=== PATIENT | female | born 1955 | race American Indian/Alaskan Native ===

== ENCOUNTER 2017-10-23 14:51 | Inpatient (IN) | payer BC ==
--- NOTE | 2017-10-23 15:41 | C.PDOC ---
History Of Present Illness 62yo female, history of hypertension, brought to ER by family as they noted patient has slurred speech, confusion, and is "not making sense with words" x 2- 3 days. Patient's family states the symptoms were intermittent and now have worsened, prompting the ER visit. They states the patient is not at her baseline as well. She currently denies any fever, chills, chest pain and offers no other complaints. Full HPI and ROS limited due to the clinical condition. Time Seen by Provider: 10/23/17 15:05 Chief Complaint (Nursing): Medical Clearance History Per: Family History/Exam Limitations: clinical condition Past Medical History Reviewed: Historical Data, Nursing Documentation, Vital Signs Vital Signs: Last Vital Signs Temp 98.6 F 10/23/17 22:40 Pulse 158 H 10/23/17 22:40 Resp 18 10/23/17 22:40 BP 157/92 H 10/23/17 22:45 Pulse Ox 97 10/23/17 22:40 - Medical History PMH: HTN Surgical History: No Surg Hx Family History: States: No Known Family Hx - Social History Hx Alcohol Use: No Hx Substance Use: No Review Of Systems Except As Marked, All Systems Reviewed And Found Negative. Constitutional: Negative for: Fever, Chills Cardiovascular: Negative for: Chest Pain Respiratory: Negative for: Shortness of Breath Neurological: Positive for: Altered Mental Status Physical Exam - Physical Exam Appears: Non-toxic, No Acute Distress Skin: Normal Color, Warm, Dry Head: Atraumatic, Normacephalic Eye(s): bilateral: Normal Inspection Neck: Normal ROM, Supple Chest: Symmetrical, No Tenderness Cardiovascular: Rhythm Regular Respiratory: Normal Breath Sounds Gastrointestinal/Abdominal: Normal Exam, Soft, No Tenderness Back: Normal Inspection Extremity: Normal ROM, No Pedal Edema Neurological/Psych: Normal Speech, Normal Cognition, Normal Motor, Normal Sensation Disoriented To: Place, Time, Situation Gait: Steady ED Course And Treatment - Laboratory Results Result Diagrams: 10/23/17 15:47 10/23/17 15:47 ECG: Interpreted By Me, Viewed By Me ECG Interpretation: Normal Interpretation Of ECG: Normal interval, norml axis, nonspecific t-wave changes Rate From EC O2 Sat by Pulse Oximetry: 97 (RA) Pulse Ox Interpretation: Normal Medical Decision Making Medical Decision Making: Assessment: Confusion Plan: -- Labs -- CXR -- CT Head w/o contrast 1600 CT Head FINDINGS: HEMORRHAGE: No intracranial hemorrhage. BRAIN: There are multiple foci of encephalomalacia in the bilateral basal ganglia suggestive of chronic lacunar infarctions. Atrophy and extensive white matter changes are noted suggestive of chronic microvascular ischemic disease. VENTRICLES: Unremarkable. No hydrocephalus. CALVARIUM: Unremarkable. PARANASAL SINUSES: Unremarkable as visualized. No significant inflammatory changes. MASTOID AIR CELLS: Unremarkable as visualized. No inflammatory changes. OTHER FINDINGS: None. IMPRESSION: No evidence of acute intracranial hemorrhage mass effect or midline shift. Bilateral chronic lacunar infarction at the basal ganglia. Atrophy and extensive white matter changes suggestive of chronic microvascular ischemic disease. [address] Recinos, patient to be admitted under her service for hypertension and confusion. patient bp noted to be elevated and treated with labetalol and clonididine and admitted to medical surgical floor. Disposition Discussed With Dr.: Taylor Recinos Doctor Will See Patient In The: Hospital Counseled Patient/Family Regarding: Studies Performed, Diagnosis - Disposition Disposition: HOSPITALIZED Disposition Time: 19:44 Condition: FAIR - Clinical Impression Clinical Impression: Hypertension, Confusion - Scribe Statement The provider has reviewed the documentation as recorded by the Winsome Maitas Provider Attestation: All medical record entries made by the Winsome were at my direction and personally dictated by me. I have reviewed the chart and agree that the record accurately reflects my personal performance of the history, physical exam, medical decision making, and the department course for this patient. I have also personally directed, reviewed, and agree with the discharge instructions and disposition.
[2017-10-23 15:51] LABS: BASO # 0.1 K/uL (0.0-0.2); BASO % 0.6 % (0.0-2.0); EOS # 0.2 K/uL (0.0-0.7); EOS % 2.8 % (0.0-4.0); HEMOGLOBIN 12.7 g/dL (11.0-16.0); LYMPH # 2.7 K/uL (1.0-4.3); LYMPH % 32.2 % (20.0-40.0); MEAN CELL VOLUME 79.6 fL (81.0-99.0); MEAN CORPUSCULAR HEMOGLOBIN 26.2 pg (27.0-31.0); MEAN CORPUSCULAR HGB CONC 32.9 g/dL (33.0-37.0); MEAN PLATELET VOLUME 7.7 fL (7.2-11.7); MONO # 0.8 K/uL (0.0-0.8); MONO % 9.2 % (0.0-10.0); NEUT # 4.7 K/uL (1.8-7.0); NEUT % 55.2 % (50.0-75.0); NRBC % 0.1 % (0.0-2.0); RBC 4.86 Mil/uL (3.80-5.20); RED CELL DISTRIBUTION WIDTH 15.8 % (11.5-14.5); WHITE BLOOD COUNT 8.5 K/uL (4.8-10.8)
[2017-10-23 16:08] LABS: ALB/GLOB RATIO 1.2 (1.0-2.1); ALBUMIN 4.3 g/dL (3.5-5.0); ALT/SGPT 21 U/L (9-52); AST/SGOT 19 U/L (14-36); BLOOD UREA NITROGEN 13 mg/dL (7-17); CALCIUM 9.8 mg/dl (8.6-10.4); GFR AFRICAN-AMERICAN 55; GFR NON-AFRICAN AMERICAN 45
--- NOTE | 2017-10-23 16:08 | CT ---
Date of service: 10/23/2017 PROCEDURE: CT HEAD WITHOUT CONTRAST. HISTORY: dizziness COMPARISON: None available. TECHNIQUE: Axial computed tomography images were obtained through the head/brain without intravenous contrast. Radiation dose: Total exam DLP = 836.46 mGy-cm. This CT exam was performed using one or more of the following dose reduction techniques: Automated exposure control, adjustment of the mA and/or kV according to patient size, and/or use of iterative reconstruction technique. FINDINGS: HEMORRHAGE: No intracranial hemorrhage. BRAIN: There are multiple foci of encephalomalacia in the bilateral basal ganglia suggestive of chronic lacunar infarctions. Atrophy and extensive white matter changes are noted suggestive of chronic microvascular ischemic disease. VENTRICLES: Unremarkable. No hydrocephalus. CALVARIUM: Unremarkable. PARANASAL SINUSES: Unremarkable as visualized. No significant inflammatory changes. MASTOID AIR CELLS: Unremarkable as visualized. No inflammatory changes. OTHER FINDINGS: None. IMPRESSION: No evidence of acute intracranial hemorrhage mass effect or midline shift. Bilateral chronic lacunar infarction at the basal ganglia. Atrophy and extensive white matter changes suggestive of chronic microvascular ischemic disease.
[2017-10-23 16:19] LABS: B-TYPE NATRIURETIC PEPTIDE 40.6 pg/mL (0-900)
[2017-10-23] MEDS ORDERED: Labetalol 25mg/5ml Syringe IVP STA ×2 (16:19→19:42)
--- NOTE | 2017-10-23 16:22 | RAD ---
Date of service: 10/23/2017 PROCEDURE: CHEST RADIOGRAPH, 1 VIEW HISTORY: SOB COMPARISON: None available. FINDINGS: LUNGS: Clear. PLEURA: No pneumothorax or pleural fluid seen. CARDIOVASCULAR: Normal. OSSEOUS STRUCTURES: No significant abnormalities. VISUALIZED UPPER ABDOMEN: Normal. OTHER FINDINGS: None. IMPRESSION: No active disease.
[2017-10-23] MEDS ORDERED: Labetalol 25mg/5ml Syringe ONE (16:50)
[2017-10-23 19:23] LABS: BARBITURATES, UR NEGATIVE (NEGATIVE); BENZODIAZEPINES, UR NEGATIVE (NEGATIVE); OPIATES, UR NEGATIVE (NEGATIVE); PHENCYCLIDINE, UR NEGATIVE (NEGATIVE)
[2017-10-23 20:25] LABS: SQUAMOUS EPITHIAL 8 /hpf (0-5); URINE BACTERIA FEW (<OCC); URINE BILIRUBIN NEGATIVE (NEGATIVE); URINE BLOOD NEGATIVE (NEGATIVE); URINE CLARITY Hazy (Clear); URINE COLOR Yellow (YELLOW); URINE GLUCOSE (UA) NORMAL (Normal); URINE LEUKOCYTE ESTERASE 3+ Leu/uL (Negative); URINE PROTEIN 2+ mg/dL (NEGATIVE); URINE UROBILINOGEN NORMAL mg/dL (0.2-1.0)
[2017-10-24 07:41] LABS: IRON 59 ug/dL (37-170)
[2017-10-24 07:51] LABS: % IRON SATURATION 18 (20-55); TOTAL IRON BINDING CAPACITY 326 ug/dL (250-450)
[2017-10-24] MEDS: Metoprolol Succinate 50 mg XL Tab PO SCH (09:16)
[2017-10-24 09:32] LABS: FOLATE 12.1 ng/mL
[2017-10-24] MEDS ORDERED: Labetalol 25mg/5ml Syringe IVP STA (11:53)
--- NOTE | 2017-10-24 14:50 | MRI ---
Date of service: 10/24/2017 PROCEDURE: MRI BRAIN WITHOUT CONTRAST HISTORY: AMS COMPARISON: Noncontrast head CT from 10/23/2017. TECHNIQUE: Multiplanar, multisequence MR images of the brain were obtained without intravenous contrast enhancement. FINDINGS: HEMORRHAGE: None DWI: There is a triangular area of restricted diffusion in the left parieto-occipital lobe. BRAIN PARENCHYMA: There is T2/FLAIR hyperintensity in the left parieto-occipital lobe corresponding to the area of restricted diffusion There is an old lacunar infarction in the left basal ganglia. There are perivascular spaces in bilateral basal ganglia. There are severe chronic microangiopathic changes. There is no mass, mass effect or abnormal extra-axial fluid collection. There is no territorial infarction. There is a partially empty sella, otherwise the midline sagittal structures are normal. VENTRICLES: There is moderate age-related global parenchymal volume loss and proportionate enlargement of the ventricles and cortical sulci. CRANIUM: There is normal bone marrow signal pattern. ORBITS: Grossly unremarkable. PARANASAL SINUSES/MASTOIDS: Predominantly clear. VASCULAR SYSTEM: There are normal signal voids in the larger intracranial arteries. OTHER FINDINGS: None. IMPRESSION: 1. Acute left MCA [employer]ISTANT watershed territory infarction involving the parietal occipital lobe. 2. Severe chronic microangiopathic changes and moderate age-related global parenchymal volume loss. 3. Old lacunar infarction in the left basal ganglia. Important findings were discussed with Dr. James Summers on 10/24/2017 at 2:40 p.m.
--- NOTE | 2017-10-24 17:55 | CP.PCM.CON ---
History of Present Illness - History of Present Illness History of Present Illness: 62yo female, history of hypertension, brought to ER by family as they noted patient has slurred speech, confusion, and is "not making sense with words" x 2- 3 days. Patient's family states the symptoms were intermittent and now have worsened, prompting the ER visit. They states the patient is not at her baseline as well. She currently denies any fever, chills, chest pain and offers no other complaints. At th etime of examination sitting in chair with daughter and have slurred speech. No focal weakness. Review of Systems - Constitutional Constitutional: As Per HPI - EENT Eyes: As Per HPI Ears: As Per HPI - Breasts Breasts: As Per HPI - Cardiovascular Cardiovascular: As Per HPI - Respiratory Respiratory: As Per HPI - Gastrointestinal Gastrointestinal: As Per HPI - Genitourinary Genitourinary: As Per HPI - Reproductive: Female Reproductive:Female: As Per HPI, Cycle Variable - Neurological Neurological: As Per HPI Past Patient History - Past Medical History & Family History Past Medical History?: Yes - Past Social History Smoking Status: Former Smoker - CARDIAC Hx Cardiac Disorders: Yes Hx Hypertension: Yes - PULMONARY Hx Respiratory Disorders: No - NEUROLOGICAL Hx Neurological Disorder: No - HEENT Hx HEENT Problems: No - RENAL Hx Chronic Kidney Disease: No - HEMATOLOGICAL/ONCOLOGICAL Hx Blood Disorders: No - INTEGUMENTARY Hx Dermatological Problems: No - MUSCULOSKELETAL/RHEUMATOLOGICAL Hx Falls: No - GASTROINTESTINAL Hx Gastrointestinal Disorders: No - GENITOURINARY/GYNECOLOGICAL Hx Genitourinary Disorders: No - PSYCHIATRIC Hx Substance Use: No - SURGICAL HISTORY Hx Surgeries: No - ANESTHESIA Hx Anesthesia: No Meds Allergies/Adverse Reactions: Allergies Allergy/AdvReac Type Severity Reaction Status Date / Time No Known Allergies Allergy Unverified 10/23/17 14:54 - Medications Medications: Current Medications Amlodipine Besylate (Norvasc) 10 mg PO DAILY [facility] Last Admin: 10/24/17 09:16 Dose: 10 mg Aspirin (Aspirin) 325 mg PO DAILY [facility] Last Admin: 10/24/17 11:33 Dose: 325 mg Enalapril Maleate (Vasotec) 20 mg PO DAILY [facility] Last Admin: 10/24/17 09:17 Dose: 20 mg Famotidine (Pepcid) 20 mg PO DAILY [facility] Last Admin: 10/24/17 09:16 Dose: 20 mg Metoprolol Succinate (Toprol Xl) 50 mg PO DAILY [facility] Last Admin: 10/24/17 09:16 Dose: 50 mg Pneumococcal Polyvalent Vaccine (Pneumovax 23 Vaccine) 0.5 ml SC .ONCE ONE Stop: 10/26/17 10:01 Rosuvastatin Calcium (Crestor) 20 mg PO [facility] Physical Exam - Head Exam Head Exam: NORMOCEPHALIC - Neck Exam Neck exam: Positive for: Normal Inspection - Respiratory Exam Respiratory Exam: NORMAL BREATHING PATTERN - Cardiovascular Exam Cardiovascular Exam: REGULAR RHYTHM Additional comments: 2/6 systolic murmur. - GI/Abdominal Exam GI & Abdominal Exam: Soft - Extremities Exam Extremities exam: Positive for: normal inspection - Neurological Exam Neurological exam: Alert, Oriented x3 Results - Vital Signs Recent Vital Signs: Last Vital Signs Temp 98 F 10/24/17 15:00 Pulse 70 10/24/17 15:00 Resp 20 10/24/17 15:00 BP 159/70 H 10/24/17 15:00 Pulse Ox 98 10/24/17 15:00 - Labs Result Diagrams: 10/23/17 15:47 10/23/17 15:47 Labs: Laboratory Results - last 24 hr 10/23/17 10/23/17 10/24/17 18:51 20:14 07:20 POC Glucose (mg/dL) Hemoglobin A1c 6.3 Iron TIBC % Saturation Triglycerides Cholesterol LDL Cholesterol Direct HDL Cholesterol Vitamin B12 Folate Urine Color Yellow Urine Clarity Hazy Urine pH 5.0 Ur Specific [place] 1.023 Urine Protein 2+ H Urine Glucose (UA) Normal Urine Ketones Negative Urine Blood Negative Urine Nitrate Negative Urine Bilirubin Negative Urine Urobilinogen Normal Ur Leukocyte Esterase 3+ H Urine WBC (Auto) 91 H Urine RBC (Auto) 9 H Ur Squamous Epith Cells 8 H Urine Bacteria Few H Urine Opiates Screen Negative Urine Methadone Screen Negative Ur Barbiturates Screen Negative Ur Phencyclidine Scrn Negative Ur Amphetamines Screen Negative U Benzodiazepines Scrn Negative U Oth Cocaine Metabols Negative U Cannabinoids Screen Negative 10/24/17 10/24/17 10/24/17 07:20 07:20 17:02 POC Glucose (mg/dL) 113 H Hemoglobin A1c Iron 59 TIBC 326 % Saturation 18 L Triglycerides 95 Cholesterol 212 H LDL Cholesterol Direct 158 H HDL Cholesterol 29 L Vitamin B12 398 Folate 12.1 Urine Color Urine Clarity Urine pH Ur Specific [place] Urine Protein Urine Glucose (UA) Urine Ketones Urine Blood Urine Nitrate Urine Bilirubin Urine Urobilinogen Ur Leukocyte Esterase Urine WBC (Auto) Urine RBC (Auto) Ur Squamous Epith Cells Urine Bacteria Urine Opiates Screen Urine Methadone Screen Ur Barbiturates Screen Ur Phencyclidine Scrn Ur Amphetamines Screen U Benzodiazepines Scrn U Oth Cocaine Metabols U Cannabinoids Screen - Impressions Impression: Sinus rhythm with non-specific St-T changes. Assessment & Plan (1) CVA (cerebral vascular accident) Assessment and Plan: As per family and exam, patient has slurred speech which is new. Consider neurology evaluation and CT/MRI. Echocardiogram to assess LV function and extent of MR. Status: Acute (2) Hypertension Assessment and Plan: Control BP, keep between 130-150 mm Hg. Status: Acute (3) Mitral regurgitation Assessment and Plan: New/old ? Echocardiogram and further work-up as needed. Status: Acute
[2017-10-24 20:03] LABS: SQUAMOUS EPITHIAL 13 /hpf (0-5); URINE BACTERIA FEW (<OCC); URINE BILIRUBIN NEGATIVE (NEGATIVE); URINE BLOOD NEGATIVE (NEGATIVE); URINE CLARITY Hazy (Clear); URINE COLOR Yellow (YELLOW); URINE GLUCOSE (UA) NORMAL (Normal); URINE LEUKOCYTE ESTERASE 3+ Leu/uL (Negative); URINE PROTEIN 2+ mg/dL (NEGATIVE); URINE UROBILINOGEN NORMAL mg/dL (0.2-1.0)
[2017-10-24 20:09] LABS: HEMOGLOBIN 12.3 g/dL (11.0-16.0); MEAN CELL VOLUME 80.3 fL (81.0-99.0); MEAN CORPUSCULAR HEMOGLOBIN 25.7 pg (27.0-31.0); MEAN PLATELET VOLUME 8.1 fL (7.2-11.7); RBC 4.79 Mil/uL (3.80-5.20); RED CELL DISTRIBUTION WIDTH 15.8 % (11.5-14.5); WHITE BLOOD COUNT 8.3 K/uL (4.8-10.8)
[2017-10-24 20:23] LABS: ALB/GLOB RATIO 1.2 (1.0-2.1); ALBUMIN 3.9 g/dL (3.5-5.0); ALT/SGPT 16 U/L (9-52); AST/SGOT 32 U/L (14-36); BLOOD UREA NITROGEN 13 mg/dL (7-17); CALCIUM 9.7 mg/dl (8.6-10.4); GFR AFRICAN-AMERICAN 55; GFR NON-AFRICAN AMERICAN 45; HDL CHOLESTEROL 33 mg/dL (30-70)
[2017-10-24 20:29] LABS: B-TYPE NATRIURETIC PEPTIDE 69.5 pg/mL (0-900); CK-MB 0.85 ng/mL (0.0-3.38)
[2017-10-24 20:34] LABS: LDL CHOLESTEROL 148 mg/dL (0-129)
[2017-10-24 20:47] LABS: T3 1.82 nmol/L (1.49-2.60)
--- NOTE | 2017-10-24 21:34 | CON ---
Copied To: James Summers MD Attending MD: James Summers MD DATE: 10/24/2017 NEUROLOGY CONSULTATION REASON FOR CONSULTATION: Altered mental status. HISTORY OF PRESENTING ILLNESS: The patient is a 62-year-old female who was brought by the family as the patient was experiencing confusion and slurring of speech and not making sense. This was happening over the last two to three days. Finally, family realized that something is wrong and they brought her to the hospital. The patient denies any focal weakness in her arms or legs. Unable to give a detailed history. History is mainly from the chart. REVIEW OF SYSTEMS: Denies any headache, dizziness, chest pain, shortness of breath, abdominal pain, constipation, diarrhea, cough, or sputum production. PAST MEDICAL HISTORY: Hypertension. MEDICATIONS AT HOME: None. ALLERGIES: NO KNOWN DRUG ALLERGIES. SOCIAL HISTORY: Denies smoking, use of alcohol, or illicit drugs. FAMILY HISTORY: Noncontributory to the case. PHYSICAL EXAMINATION: GENERAL: The patient is a middle-aged female, lying in the bed, in no acute distress. VITAL SIGNS: Her blood pressure is 160/82, heart rate is 66 per minute, breathing at a rate of 16 per minute, and temperature is 98.4 degrees Fahrenheit. HEENT: Head is normocephalic and atraumatic. NECK: Supple. There are no carotid bruits. LUNGS: Clear. CVS: S1 and S2 audible. No murmurs. ABDOMEN: Soft and nontender with bowel sounds present. NEUROLOGY: Mental status: The patient is awake, alert, and oriented to place as the hospital, year does not know, month does not remember. She follows all simple commands. Her naming is impaired. Her repetition is impaired. Cranial nerve: Pupils are 3 mm bilaterally, reactive to light. Visual taylor are full. Extraocular movements are intact. There is no facial asymmetry. Plantars downgoing bilaterally. Cerebellar examination, no gross dysmetria seen. The reflexes are 1+ and symmetrical. Gait is deferred at the moment. LABORATORY DATA: Labs reviewed shows WBC 8.5, hemoglobin 12.7, hematocrit 38.7, and platelets of 265. Sodium is 143, potassium 4.1, chloride 103, carbon dioxide 28, BUN of 13, creatinine 1.2, and glucose of 116. The patient's LDL is 158, the cholesterol is 212, vitamin B12 is 398. The patient had a CT scan of the head, which shows no acute intracranial pathology, bilateral chronic lacunar infracts at the basal ganglia. IMPRESSION: 1. Altered mental status, which appears to be secondary to an underlying cerebrovascular accident. 2. Cerebrovascular disease. RECOMMENDATIONS: 1. The patient to have MRI of the brain without contrast. 2. The patient also to have en electroencephalogram. 3. The patient to be started on aspirin 325 mg once a day. 4. The patient's blood pressure to be controlled. 5. The patient also to have a carotid Doppler and echocardiogram if MRI does show an acute stroke. 6. The patient to have speech therapy evaluation. 7. The patient was not a candidate for TPA administration because of out of time window for TPA administration. 8. Please continue supportive care and other treatments. Thank you for the opportunity to participate in the care of this patient. James Summers MD
[2017-10-25 07:23] LABS: HEMOGLOBIN 12.9 g/dL (11.0-16.0); MEAN CELL VOLUME 80.5 fL (81.0-99.0); MEAN CORPUSCULAR HGB CONC 33.6 g/dL (33.0-37.0); MEAN PLATELET VOLUME 8.1 fL (7.2-11.7); RBC 4.78 Mil/uL (3.80-5.20); WHITE BLOOD COUNT 7.3 K/uL (4.8-10.8)
[2017-10-25 07:30] LABS: BLOOD UREA NITROGEN 12 mg/dL (7-17); CALCIUM 9.4 mg/dl (8.6-10.4); GFR AFRICAN-AMERICAN > 60; GFR NON-AFRICAN AMERICAN 50; IRON 58 ug/dL (37-170)
[2017-10-25 07:43] LABS: ALB/GLOB RATIO 1.1 (1.0-2.1); ALBUMIN 3.9 g/dL (3.5-5.0); BILIRUBIN,DIRECT 0.3 mg/dL (0.0-0.4)
[2017-10-25 07:50] LABS: % IRON SATURATION 18 (20-55); TOTAL IRON BINDING CAPACITY 328 ug/dL (250-450)
[2017-10-25 08:50] LABS: FOLATE 11.8 ng/mL
[2017-10-25] MEDS: Metoprolol Succinate 50 mg XL Tab PO SCH (09:07)
--- NOTE | 2017-10-25 11:39 | HP ---
date 10/24/17 Copied To: Taylor Recinos MD Attending MD: Taylor Recinos MD CHIEF COMPLAINT: Slurring of speech, altered mental status. HISTORY OF PRESENT ILLNESS: The patient is a 62-year-old female with history of hypertension brought to the emergency room by the family. They noted the patient to have slurring of speech, confusion, and not making any sense with words for two to three days. The patient's family, especially daughter sitting on the bedside, and niece sitting on the bedside, explained to me that the symptom was intermittent and now it is worsening symptom. The patient states that she is not at her baseline well. She currently denies fever or chills. No chest pain. No shortness of breath, but still she is not at her baseline and slurring of speech has improved but still there. PAST MEDICAL HISTORY: Hypertension. The patient is noncompliant as per daughter, not taking medications. HABITS: No smoking. No drug. No ethanol. REVIEW OF SYSTEMS: The patient was seen and examined at the bedside. Daughter and niece were sitting on the bedside also. All systems reviewed and found negative. No fever, no chills at that moment; no chest pain, no shortness of breath. No altered mental status at that moment. PHYSICAL EXAMINATION: VITAL SIGNS: Temperature 98.6, pulse 158, respiratory rate 18, blood pressure 120/80 , pulse oximetry 92. HEENT: Head: Normocephalic and atraumatic. Eyes: PERRLA. Extraocular movements intact. Conjunctivae clear. Nose patent. Mucous membranes moist. NECK: Supple. No carotid bruits. No JVD or thyromegaly. CHEST: Bilaterally symmetric. HEART: S1 and S2 positive. LUNGS: Clear to auscultation. ABDOMEN: Soft. Bowel sounds present. No organomegaly. EXTREMITIES: No edema. No cyanosis. NEUROLOGIC: The patient is awake and alert. Moving all 4 extremities. No focal deficits. LABORATORY DATA: White blood cells 8.5, hemoglobin 12.7, hematocrit 38.7, platelets 267,000. Sodium 143, potassium 4.1, BUN 13, creatinine 1.2, and glucose 116. ASSESSMENT: The patient is a 62-year-old lady with hyperglycemia, severe altered mental status, slurring of the speech, accelerated hypertension. On the admission, it was accelerated hypertension. PLAN: Plan was to admit the patient in the unit. General Foundry Worker evaluated the patient. The patient went for MRI, showed acute left MCA/[employer]PER[employer]OR watershed territory infarction involving the parietal-occipital lobe, severe chronic microvascular changes and morbid age-related global volume loss, old lacunar infarction in the left basal ganglia, and radiologist had discussion done by Dr. James Summers, the patient's neurologist, who ordered MRI. I appreciated Dr. James Summers's input, seen by Dr. Marrero. Also CAT scan of the head reviewed by me. Echocardiography was reviewed. Altered mental status, which appears to due to an underlying cerebrovascular event, needs echocardiography. Aspirin is started. Needs good blood pressure control. Carotid Doppler of the neck. Speech, PT/OT, not candidate of TPA administration because of that time window passed, recommending supportive care, GI and DVT prophylaxis, and repeat labs. We will follow up. Lengthy discussion done with the patient's niece and the patient's daughter. Taylor Recinos MD ALICE
--- NOTE | 2017-10-25 13:31 | VASCLAB ---
Date of service: 10/24/2017 PROCEDURE: HISTORY: ams, cva COMPARISON: None available. TECHNIQUE: Grayscale and duplex Doppler evaluation of the cervical carotid and vertebral arteries were performed. The common carotid, carotid bifurcations and cervical Internal Carotid Artery (ICA) and proximal External Carotid Artery (ECA) were evaluated. The vertebral arteries were evaluated for gross patency and flow direction. Report prepared by Raul Basurto, BS, RVT FINDINGS: RIGHT CAROTID ARTERIES: 1. Common Carotid Artery: No significant focal plaque formation of the right common carotid artery. Maximum Peak Systolic velocity: 72 cm/sec: End-diastolic velocity 21 cm/sec. 2. Carotid Bifurcation: plaque formation. Maximum Peak Systolic velocity: 73 cm/sec: End-diastolic velocity 15 cm/sec. 3. Internal Carotid Artery: Plaque description: 3.1. Proximal Segment: Peak systolic velocity 59 cm/sec: End-diastolic velocity 17 cm/sec - % stenosis 0-15% 3.2. Middle Segment: Peak systolic velocity 74 cm/sec: End-diastolic velocity 27 cm/sec - % stenosis 0-15% 3.3. Distal Segment: Peak systolic velocity 42 cm/sec: End-diastolic velocity 15 cm/sec - % stenosis 0-15% 4. External Carotid Artery: No significant focal plaque formation. Peak systolic velocity 70 cm/sec 5. ICA/CCA Ratio: 1.0 LEFT CAROTID ARTERIES: 1. Common Carotid Artery: No significant focal plaque formation of the left common carotid artery. Maximum Peak Systolic velocity: 77 cm/sec: End-diastolic velocity 22 cm/sec. 2. Carotid Bifurcation: plaque formation. Maximum Peak Systolic velocity: 46 cm/sec: End-diastolic velocity 17 cm/sec. 3. Internal Carotid Artery: Plaque description: 3.1. Proximal Segment: Peak systolic velocity 54 cm/sec: End-diastolic velocity 22 cm/sec - % stenosis 0-15% 3.2. Middle Segment: Peak systolic velocity 46 cm/sec: End-diastolic velocity 23 cm/sec - % stenosis 0-15% 3.3. Distal Segment: Peak systolic velocity 40 cm/sec: End-diastolic velocity 12 cm/sec - % stenosis 0-15% 4. External Carotid Artery: No significant focal plaque formation. Peak systolic velocity 53 cm/sec 5. ICA/CCA Ratio: 0.7 VERTEBRAL ARTERIES: 1. Right Vertebral Artery: The right vertebral artery flow direction is antegrade. 2. Left Vertebral Artery: The left vertebral artery flow direction is antegrade. OTHER FINDINGS: 1. Right Brachial Blood pressure: 204 mmHg. 2. Left Brachial Blood pressure: 208 mmHg. IMPRESSION: RIGHT: Duplex scan does not suggest hemodynamically significant stenosis of the right extracranial carotid arteries. LEFT: Duplex scan does not suggest hemodynamically significant stenosis of the left extracranial carotid arteries.
--- NOTE | 2017-10-25 15:06 | PN ---
Copied To: James Summers MD Attending MD: James Summers MD DATE: 10/25/2017 SUBJECTIVE: The patient is sitting on the bed, in no acute distress. Denies having any headache or dizziness. PHYSICAL EXAMINATION: VITAL SIGNS: Her blood pressure is 148/82, heart rate is 61 per minute, breathing at a rate of 16 per minute, temperature 98.5 degrees Fahrenheit. HEENT: Head is normocephalic and atraumatic. NECK: Supple. There are no carotid bruits. LUNGS: Clear. CARDIOVASCULAR: S1 and S2 audible. No murmurs. ABDOMEN: Soft and nontender. Bowel sounds are present. NEUROLOGIC: Mental status: The patient is awake and alert, oriented to place and person. Speech is fluent. She does have word finding difficulties. Naming is impaired. Cranial nerve: Pupils 3 mm bilaterally, reactive to light. Visual taylor are full. Extraocular movements are intact. There is no facial asymmetry. Palate is upgoing bilaterally and tongue is midline. Motor: Tone is normal. Power is 5/5 bilaterally in all extremities. Reflex is 1+ and symmetrical. Plantars are downgoing bilaterally. LABORATORY DATA: Labs reviewed. MRI of the brain shows acute left middle cerebral artery and posterior cerebral artery watershed territory infarction involving the parietal occipital lobe. Severe chronic microangiopathic changes and moderate age-related global parenchymal volume loss. IMPRESSION: 1. Cerebrovascular accident with expressive aphasia. 2. Hypertension. RECOMMENDATION: 1. The patient had an echocardiogram and carotid Doppler study done. Please follow up the results. 2. The patient to be continued on aspirin. 3. The patient also to be continued on statin. 4. The patient's blood pressure is better controlled. 5. The patient to have speech therapy. 6. Please continue supportive care and the treatment. Thank you for the opportunity to participate in the care of this patient. James Summers MD
--- NOTE | 2017-10-25 21:33 | CARD ---
APPROVED REPORT Date of service: 10/23/2017 EKG Measurement Heart [id number] <Conclusion> Normal sinus rhythm Nonspecific T wave abnormality Abnormal ECG
--- NOTE | 2017-10-26 06:56 | PN ---
Copied To: Taylor Recinos MD Attending MD: Taylor Recinos MD DATE: 10/25/2017 SUBJECTIVE: The patient is a 62-year-old female. The patient is sitting on the bedside. Daughter is sitting on the bedside also. Language is getting better. No nausea or vomiting. No diarrhea. No hematochezia. No swelling of the legs. No chest pain. No palpitation. No headache or dizziness. PHYSICAL EXAMINATION: VITAL SIGNS: Blood pressure 140/82, heart rate 61, respiratory rate 16, temperature 96.5. HEENT: Head, normocephalic and atraumatic. Eyes, PERRLA. Extraocular muscles intact. Conjunctivae clear. Nose patent. Mucous membranes moist. NECK: Supple. No carotid bruit, JVD, or thyromegaly. CHEST: Bilaterally symmetrical. HEART: S1 and S2 are positive. LUNGS: Clear to auscultation. ABDOMEN: Soft, nontender. No organomegaly. Bowel sounds positive. NEUROLOGICAL: The patient is awake, alert, oriented x3. Follows simple commands. Moving all four extremities. MEDICATIONS: Aspirin, Crestor, Norvasc, Pepcid, metoprolol, Vasotec. LABORATORY DATA: White blood 7.3, hemoglobin 12.9, hematocrit 38.5, platelets 273. Sodium 141, potassium 4.1, BUN 12, creatinine 1.1, glucose 124. Saturation 18%. Cholesterol 211, LDL 156. Has proteinuria. ASSESSMENT AND PLAN: The patient is a 52-year-old female with hypercholesterolemia, iron deficiency, proteinuria, drug screening negative, has cerebrovascular accident with expressive aphasia, hypertension. The patient had echocardiography and carotid Doppler done. Continue aspirin. Continue statin. Need better control of blood pressure. Need speech therapy, occupational therapy. Continue supportive care. Carotid Doppler of neck, the right duplex scan does not suggest hemodynamically significant stenosis of the right extracranial carotid Duplex of left scan does not suggest hemodynamically significant stenosis of the left saphenous carotid arteries. Cardiology, Dr. Marrero, is on the case. Length of time discussion with the patient and the patient's daughter is extensive. PT, OT. We will follow. Taylor Recinos MD MTDJuan J
[2017-10-26] MEDS ORDERED: Pneumococcal 23-Valent Vaccine SC ONE (10:00)
[2017-10-26] MEDS: Metoprolol Succinate 50 mg XL Tab PO SCH (11:03)
--- NOTE | 2017-10-26 17:18 | CP.PCM.PN ---
Subjective - Date & Time of Evaluation Date of Evaluation: 10/26/17 Time of Evaluation: 17:18 - Subjective Subjective: Feeling better. No new complaints. Objective - Vital Signs/Intake and Output Vital Signs (last 24 hours): Temp Pulse Resp BP Pulse Ox 98.4 F 65 20 160/78 H 97 10/26/17 15:00 10/26/17 15:00 10/26/17 15:00 10/26/17 15:00 10/26/17 15:00 Intake and Output: 10/26/17 10/26/17 06:59 18:59 Intake Total 240 Balance 240 - Medications Medications: Current Medications Amlodipine Besylate (Norvasc) 10 mg PO DAILY [facility] Last Admin: 10/26/17 11:03 Dose: 10 mg Aspirin (Aspirin) 325 mg PO DAILY [facility] Last Admin: 10/26/17 11:03 Dose: 325 mg Enalapril Maleate (Vasotec) 20 mg PO DAILY [facility] Last Admin: 10/26/17 11:02 Dose: 20 mg Famotidine (Pepcid) 20 mg PO DAILY [facility] Last Admin: 10/26/17 11:03 Dose: 20 mg Metoprolol Succinate (Toprol Xl) 50 mg PO DAILY [facility] Last Admin: 10/26/17 11:03 Dose: 50 mg Rosuvastatin Calcium (Crestor) 20 mg PO HS [facility] Last Admin: 10/25/17 22:28 Dose: 20 mg - Labs Labs: 10/25/17 06:56 10/25/17 06:56 - Neck Exam Neck Exam: Normal Inspection - Respiratory Exam Respiratory Exam: NORMAL BREATHING PATTERN - Cardiovascular Exam Cardiovascular Exam: REGULAR RHYTHM, Murmur - Extremities Exam Extremities Exam: Normal Inspection - Neurological Exam Neurological Exam: Alert, Oriented x3 Additional comments: Still have some difficulty in speech. Assessment and Plan (1) CVA (cerebral vascular accident) Assessment & Plan: Work-up in progress. Telemetry showing sinus rhythm. If no causes identified will consider loop recorder. This can be done as out patient. Status: Acute (2) Hypertension Assessment & Plan: BP borderline high. Maintain BP as per Neurology recommendation Status: Acute (3) Mitral regurgitation Assessment & Plan: Stable. Maintain fluid restriction to 1.5 L/D. Status: Acute
--- NOTE | 2017-10-27 04:48 | PN ---
Copied To: Taylor Recinos MD Attending MD: Taylor Recinos MD DATE: 10/27/2017 SUBJECTIVE: The patient is looking comfortable, feeling better. No new complaints. Language is getting better. Moving all four extremities. No focal deficit. Looks like, no fever, no chills. PHYSICAL EXAMINATION: VITAL SIGNS: Temperature 98.4, pulse 65, respiratory rate 20, blood pressure 160/70, pulse oximetry 97. HEENT: Head normocephalic and atraumatic. Eyes PERRLA. Extraocular movements intact. Conjunctiva clear. Nose patent. Mucous membrane moist. NECK: Supple. No carotid bruits. No JVD or thyromegaly. CHEST: Bilaterally symmetrical. HEART: S1, S2 positive. LUNGS: Clear to auscultation. ABDOMEN: Soft. Bowel sounds present. No organomegaly. EXTREMITIES: No edema. No cyanosis. NEUROLOGICAL: The patient is awake, alert. Moving all four extremities. No focal deficits. MEDICATIONS: Amlodipine, aspirin, enalapril, famotidine, metoprolol, Crestor. LABORATORY DATA: White blood cells 7.3, hemoglobin 12.9, hematocrit 28.5, platelets 273,000. Sodium 141, potassium 4.1, BUN 12, creatinine 1.1, glucose 115. ASSESSMENT AND PLAN: Alice Valdez is a 62-year-old female with cerebrovascular accident, hypertension, mitral regurgitation, obesity; seen by Blow Down Operator, Dr. Marrero, and neurologist, Dr. James Summers; has cerebrovascular accident with expressive aphasia, getting better. Echocardiography and carotid Doppler of the neck was done, reviewed by me. We will continue aspirin, statin. Blood pressure better controlled. Speech therapy, supportive care. Discussion done with nurse practitioner, Lisbeth. Continue present treatment. Taylor Recinos MD
[2017-10-27] MEDS: Metoprolol Succinate 50 mg XL Tab PO SCH (11:10)
--- NOTE | 2017-10-28 03:52 | PN ---
Copied To: Taylor Recinos MD Attending MD: Taylor Recinos MD DATE: 10/27/2017 SUBJECTIVE: The patient is a 62-year-old female. The patient is seen and examined at the bedside, looking comfortable. No nausea, vomiting, or diarrhea. No hematuria or hematochezia. No headache or dizziness. No chest pain. No palpitation. Getting physical therapy. Blood pressure is still high. We will do some changes in blood pressure medication. Discussion done with the nurse practitioner and the patient's nursing staff. PHYSICAL EXAMINATION: VITAL SIGNS: Temperature 98.2, pulse 60, blood pressure 167/81, respiratory rate 20. HEENT: Head is normocephalic and atraumatic. Eyes, PERRLA. Extraocular movements intact. Conjunctivae clear. Nose patent. Mucous membranes moist. NECK: Supple. No carotid bruits. No JVD or thyromegaly. CHEST: Bilaterally symmetrical. HEART: S1, S2 are positive. LUNGS: Clear to auscultation. ABDOMEN: Soft. Bowel sounds present. No organomegaly. EXTREMITIES: No edema. No cyanosis. NEUROLOGICAL: The patient is awake and alert. MEDICATIONS: Hydralazine, aspirin, Crestor, Norvasc, Pepcid, Toprol, enalapril. LABORATORY DATA: White blood cells 7.3, hemoglobin 12.9, hematocrit 38.5, platelets 273. Glucose 102. ASSESSMENT AND PLAN: Ms. Alice Valdez is a 62-year-old lady with hyperglycemia, proteinuria, has cerebrovascular accident, hypertension, mitral regurgitation, maintained fluid restriction to 1.5 liters per day, obesity, noncompliance. Getting physical therapy and occupational therapy. Blood pressure is still high. I did some changes in the blood pressure medications, make enalapril twice a day and give hydralazine. Iron deficiency. The patient has had echocardiography done and carotid Doppler done. Continue aspirin, statin. Getting physical therapy/occupational therapy. Needs supportive care. Duplex of neck on both sides reviewed by me. Dr. Marrero is the tile mason and Dr. Summers is the neurologist. We will continue present treatment. Repeat labs. We will follow tomorrow. Taylor Recinos MD
[2017-10-28 09:38] LABS: HEMOGLOBIN 13.8 g/dL (11.0-16.0); MEAN CELL VOLUME 80.4 fL (81.0-99.0); MEAN CORPUSCULAR HEMOGLOBIN 26.9 pg (27.0-31.0); MEAN CORPUSCULAR HGB CONC 33.4 g/dL (33.0-37.0); MEAN PLATELET VOLUME 8.2 fL (7.2-11.7); RBC 5.12 Mil/uL (3.80-5.20); RED CELL DISTRIBUTION WIDTH 15.7 % (11.5-14.5); WHITE BLOOD COUNT 6.9 K/uL (4.8-10.8)
[2017-10-28 09:56] LABS: BLOOD UREA NITROGEN 14 mg/dL (7-17); GFR AFRICAN-AMERICAN > 60; GFR NON-AFRICAN AMERICAN 56
[2017-10-28] MEDS: Metoprolol Succinate 50 mg XL Tab PO SCH (09:59)
[2017-10-28 10:05] LABS: CALCIUM 9.2 mg/dl (8.6-10.4)
--- NOTE | 2017-10-28 13:39 | CP.PCM.PN ---
Subjective - Date & Time of Evaluation Date of Evaluation: 10/28/17 Time of Evaluation: 13:36 - Subjective Subjective: No chest pain. but still have difficulty in speech. Objective - Vital Signs/Intake and Output Vital Signs (last 24 hours): Temp Pulse Resp BP Pulse Ox 98.3 F 62 18 147/83 100 10/28/17 07:50 10/28/17 09:00 10/28/17 07:50 10/28/17 09:59 10/28/17 07:50 Intake and Output: 10/28/17 10/28/17 06:59 18:59 Intake Total 480 Balance 480 - Medications Medications: Current Medications Amlodipine Besylate (Norvasc) 10 mg PO DAILY [facility] Last Admin: 10/28/17 10:03 Dose: 10 mg Aspirin (Aspirin) 325 mg PO DAILY [facility] Last Admin: 10/28/17 10:03 Dose: 325 mg Enalapril Maleate (Vasotec) 20 mg PO BID [facility] Last Admin: 10/28/17 09:59 Dose: 20 mg Famotidine (Pepcid) 20 mg PO DAILY [facility] Last Admin: 10/28/17 09:59 Dose: 20 mg Hydralazine HCl (Apresoline) 10 mg PO BID [facility] Last Admin: 10/28/17 09:59 Dose: 10 mg Hydralazine HCl (Apresoline) 25 mg PO QID [facility] Metoprolol Succinate (Toprol Xl) 50 mg PO DAILY [facility] Last Admin: 10/28/17 09:59 Dose: 50 mg Rosuvastatin Calcium (Crestor) 20 mg PO HS [facility] Last Admin: 10/27/17 21:48 Dose: 20 mg - Labs Labs: 10/28/17 09:31 10/28/17 09:31 - Head Exam Head Exam: NORMOCEPHALIC - Neck Exam Neck Exam: Normal Inspection - Respiratory Exam Respiratory Exam: NORMAL BREATHING PATTERN - Cardiovascular Exam Cardiovascular Exam: REGULAR RHYTHM - Extremities Exam Extremities Exam: Normal Inspection - Neurological Exam Neurological Exam: Alert, Oriented x3 Assessment and Plan (1) CVA (cerebral vascular accident) Assessment & Plan: No significant change from cardiac point. Status: Acute (2) Hypertension Assessment & Plan: One episode of HTN, Hydralazine increased. Increase hydralazine as needed. Status: Acute (3) Mitral regurgitation Assessment & Plan: Stable. Maintain fluid restriction to 1.5 L/day. Status: Acute
[2017-10-28 16:23] VITALS: RESP 20
[2017-10-29 02:53] VITALS: O2SAT 96
--- NOTE | 2017-10-29 06:34 | PN ---
DATE: 10/28/2017 SUBJECTIVE: The patient is a 62-year-old female. Patient is seen and examined at the bedside, sitting comfortable. No chest pain. No shortness of breath. Still having difficulty in speech, but improving, and blood pressure is still not under control. No fever. No chills. No headache. No dizziness. PHYSICAL EXAMINATION VITAL SIGNS: Temperature 98.3, pulse is 62, respiratory rate 18, blood pressure 147/83, and pulse oximetry 100. HEENT: Head, normocephalic and atraumatic. Eyes, PERRLA. Extraocular muscles intact. Conjunctivae clear. Nose patent. NECK: Supple. No carotid bruit. No JVD or thyromegaly. CHEST: Bilaterally symmetrical. HEART: S1 and S2, positive. LUNGS: Clear to auscultation. ABDOMEN: Soft. Bowel sounds present. No organomegaly. EXTREMITIES: No edema. No cyanosis. NEUROLOGIC: Patient is awake, alert. Moving all four extremities. No focal deficits. MEDICATIONS: Pepcid, hydralazine, Toprol, and Crestor. LABORATORY DATA: White blood cell 6.9, hemoglobin 13.6, hematocrit 41.2, and platelets 290. Sodium 142, potassium 4.1, BUN 14, creatinine 1, and glucose 122. ASSESSMENT AND PLAN: The patient is a 62-year-old lady with hyperglycemia, obesity, hypertension not getting under control, cerebrovascular accident, no significant change from the cardiac point, and mitral regurgitation. Stable, maintaining on fluid restriction to 1.5 L per day. One episode of hypertension, hydralazine increased, daily adjustment of the medication. Discussion done with the patient's nursing staff. Patient is getting physical therapy and occupational therapy. As soon as blood pressure will get stabilized, we will discharge the patient. Rehab ordered. Patient and patient's denied, want to be as outpatient. We will follow. Taylor Recinos MD MTDD
[2017-10-29 08:34] VITALS: TEMP 97.6
[2017-10-29 09:03] VITALS: BP 153/84; PULSE 62
[2017-10-29] MEDS: Metoprolol Succinate 50 mg XL Tab PO SCH (09:03)
--- NOTE | 2017-10-29 13:57 | CP.PCM.PN ---
Subjective - Date & Time of Evaluation Date of Evaluation: 10/29/17 Time of Evaluation: 13:57 - Subjective Subjective: PT SEEN BY DR. CHOWDARY AND CLEARED FOR D/C HOME TODAY. BP IMPROVED. PT FEELS COMFORTABLE. DENIES ACUTE SYMPTOMS. DISCUSSED AT LENGTH THE D/C PLAN, DIETARY CHANGES, FOLLOW UP INSTRUCTIONS, AND NEW RX WITH PT AND DAUGHTER. ALL QUESTIONS AND CONCERNS ANSWERED. NO FURTHER ORDERS. SEE BELOW FOR D/C INSTRUCTIONS PROVIDED TO PT. -FOLLOW UP WITH DR. CHOWDARY IN HER OFFICE WITHIN 1-2 WEEKS (2 WEEKS MAXIMUM)--- CALL THE OFFICE TODAY OR TOMORROW TO MAKE AN APPOINTMENT. -FOLLOW UP WITH DR. SO (NEUROLOGY) IN THE OFFICE WITHIN 1-2 WEEKS (2 WEEKS MAXIMUM)---CALL THE OFFICE TODAY OR TOMORROW TO MAKE AN APPOINTMENT. -MAKE SURE YOU TAKE THE COPY OF YOUR TEST RESULTS WITH YOU WHEN YOU ESTABLISH YOURSELF WITH A PRIMARY DOCTOR. THEY MAY HAVE THE COPIES FOR YOUR OFFICE HEALTH RECORD. -[facility] IS THE HOME CARE AGENCY THAT WILL PROVIDE HOME PHYSICAL AND OCCUPATIONAL THERAPY FOR YOU. MAKE SURE YOU CALL [place], THE [facility] ORDER ENTRY SOON POSSIBLE, SO THAT SHE CAN ARRANGE A DAY AND TIME FOR YOUR THERAPY TO START. -REMEMBER TO STAY HYDRATED (WITH A MAXIMUM OF 1.5 LITERS OF FLUIDS A DAY!) AND EAT A WELL BALANCED DIET. -FOOD SHOULD BE LOW IN SODIUM; SPICES AND SEASONINGS SHOULD BE LOW OR NO SALT ADDED. -IF YOU DEVELOP ANY WORSENING SYMPTOMS, PLEASE COME TO THE EMERGENCY DEPARTMENT IMMEDIATELY, SO THAT YOU CAN BE EVALUATED FOR A POSSIBLE NEW STROKE. -YOU HAVE BEEN PRESCRIBED A BLOOD PRESSURE CUFF. CHECK YOUR BLOOD PRESSURE EVERY BEFORE BLOOD PRESSURES MEDICINE AND ABOUT 1-2 HOURS AFTER BLOOD PRESSURE MEDICINE. YOU MAY RECORD THESE NUMBERS ON A PIECE OF PAPER AND TAKE THEM WHEN YOU SEE DR. CHOWDARY. -NEW MEDICATIONS HAVE BEEN PRESCRIBED TO YOU FOR YOUR HEART HEALTH, CHOLESTEROL , AND BLOOD PRESSURE. TAKE EXACTLY PRESCRIBED: 1) ROSUVASTATIN 20 MG (THIS IS FOR YOUR HEART HEALTH, [employer]ILD UP, AND CHOLESTEROL)---TAKE 1 TABLET BY MOUTH EVERY NIGHT AT BEDTIME (START TAKING TONIGHT, 10/29/17) 2) ASPIRIN 81 MG (THIS IS FOR YOUR HEART HEALTH, [employer] UP)---TAKE 1 TABLET BY MOUTH ONCE A DAY (START TAKING TOMORROW, 10/30/17, MORNING WITH OR AFTER BREAKFAST; YOUR LAST DOSE OF THIS WAS ON 10/29 AT 10: 00 AM). 3) ENALAPRIL 20 MG (THIS IS FOR YOUR HEART HEALTH AND BLOOD PRESSURE)---TAKE 1 TABLET BY MOUTH TWICE A DAY (START TAKING THIS EVENING WITH DINNER; TAKE EVERY DAY WITH BREAKFAST AND DINNER; YOUR LAST DOSE OF THIS MEDICINE WAS ON 10/29 AT 10:00 AM). 4) AMLODIPINE 10 MG (THIS IS FOR YOUR HEART HEALTH AND BLOOD PRESSURE)---TAKE 1 TABLET BY MOUTH ONCE A DAY (START TAKING TOMORROW, , MORNING WITH OR AFTER BREAKFAST; YOUR LAST DOSE OF THIS WAS ON 10/29 AT 10 :00 AM). 5) METOPROLOL XL 50 MG (THIS IS FOR YOUR HEART HEALTH AND BLOOD PRESSURE)--- TAKE 1 TABLET BY MOUTH ONCE A DAY (START TAKING TOMORROW, 10/30/17, AFTERNOON WITH OR AFTER LUNCH; YOUR LAST DOSE OF THIS WAS ON 10/29 AT 10:00 AM). 6) HYDRALAZINE 25 MG (THIS IS FOR YOUR HEART HEALTH AND BLOOD PRESSURE)---TAKE 1 TABLET BY MOUTH TWICE A DAY (START TAKING THIS EVENING WITH DINNER; TAKE EVERY DAY WITH BREAKFAST AND DINNER; YOUR LAST DOSE OF THIS MEDICINE WAS ON 10/29 AT 10:00 AM). Objective - Vital Signs/Intake and Output Vital Signs (last 24 hours): Temp Pulse Resp BP Pulse Ox 97.6 F 62 20 153/84 H 96 10/29/17 08:33 10/29/17 09:02 10/29/17 08:33 10/29/17 09:03 10/29/17 08:33 Intake and Output: 10/29/17 10/29/17 06:59 18:59 Intake Total 500 Balance 500 - Medications Medications: Current Medications Amlodipine Besylate (Norvasc) 10 mg PO DAILY [facility] Last Admin: 10/29/17 09:03 Dose: 10 mg Aspirin (Aspirin) 325 mg PO DAILY [facility] Last Admin: 10/29/17 09:06 Dose: 325 mg Enalapril Maleate (Vasotec) 20 mg PO BID [facility] Last Admin: 10/29/17 09:03 Dose: 20 mg Famotidine (Pepcid) 20 mg PO DAILY [facility] Last Admin: 10/29/17 09:04 Dose: 20 mg Hydralazine HCl (Apresoline) 25 mg PO BID [facility] Last Admin: 10/29/17 09:03 Dose: 25 mg Metoprolol Succinate (Toprol Xl) 50 mg PO DAILY [facility] Last Admin: 10/29/17 09:03 Dose: 50 mg Rosuvastatin Calcium (Crestor) 20 mg PO HS [facility] Last Admin: 10/28/17 22:30 Dose: 20 mg - Labs Labs: 10/28/17 09:31 10/28/17 09:31
--- NOTE | 2017-10-29 14:31 | IP.NPCORE ---
Stroke Core Measure - CQM - Stroke Antithrombotic Prescribed: Yes Anticoagulation Prescribed for Atrial Flutter, Atrial Fibrillation and History of:: Not Applicable Statin prescribed: Yes
--- NOTE | 2017-11-01 10:16 | DS ---
date 10/29/17 Copied To: Taylor Recinos MD Attending MD: Taylor Recinos MD The patient is a 62-year-old female. The patient was admitted on 10/23/2017 and discharged home on 10/29/2017. CHIEF COMPLAINT: Slurring of speech, altered mental status. HISTORY OF PRESENT ILLNESS: Ms. José Miguel Jenkins is a 62-year-old lady with history of hypertension, very noncompliant, not taking medication, brought to the emergency room by the family. They noted that the patient has slurring of speech, confusion, and not making any sense with words for two to three days. The patient's family, especially daughters, were sitting most of the time on the bedside. All questions answered. We did the CAT scan of the head, electrocardiography, chest x-ray, bilateral carotid Doppler of the neck, seen by Dr. Dee Dee Marrero, commercial airline pilot, and Dr. James Summers, neurologist. The patient had stroke, physical therapy, and occupational therapy given. Slurring of speech got better. Blood pressure was very high, gave blood pressure medications. The patient improved. Plan was to take the patient to rehab, but the patient and daughter refused, they want to go home. Prescription for physical therapy and medicine prescription given. The patient was informed to follow up with the neurologist, commercial airline pilot, and primary care physician. I gave her my card. PAST MEDICAL HISTORY: Hypertension, very noncompliant with medications. HABITS: No smoking. No drug. No ethanol. REVIEW OF SYSTEMS: The patient is seen and examined at the bedside. Looking comfortable. No nausea, vomiting, or diarrhea. No hematuria or hematochezia. No swelling of the legs. No chest pain. No palpitations. No headache. No dizziness. PHYSICAL EXAMINATION: VITAL SIGNS: Temperature 97.6, pulse 52, respiratory rate 20, blood pressure 152/44, pulse oximetry 96%. HEENT: Head: Normocephalic and atraumatic. Eyes: PERRLA. Extraocular muscles intact. Conjunctivae clear. Nose patent. Mucous membranes moist. NECK: Supple. No carotid bruits. No JVD or thyromegaly. CHEST: Bilaterally symmetric. HEART: S1 and S2 are positive. LUNGS: Clear to auscultation. ABDOMEN: Soft. Bowel sounds present. No organomegaly. EXTREMITIES: No edema. No cyanosis. NEUROLOGICAL: The patient is awake and alert. Moving all four extremities. No focal deficits. MEDICATIONS: Norvasc, aspirin, enalapril, Pepcid, hydralazine, Toprol, and Crestor. LABORATORY DATA: White blood cell 6.9, hemoglobin 13.8, hematocrit 41.2, platelets 290. Sodium 140, potassium 4.1, BUN 40, creatinine 1, glucose 122. ASSESSMENT AND PLAN: Ms. José Miguel Jenkins is a 62-year-old lady, came with excessive hypertension, altered mental status, slurring of speech, noncompliant, hyperglycemia, obesity, cerebrovascular accident, no significant change from the cardiac point, mitral regurgitation stable, multiple times of episodes of hypertension happened, hydralazine was increased, adjusted the medication. Occupational therapy and physical therapy given. Subacute rehabilitation offered. The patient and family refused. Discharged home. Prescription medications given by Lisbeth Doss, nurse practitioner. The patient will follow up with primary care physician, commercial airline pilot, and neurologist. Need good outpatient physical therapy and occupational therapy. Conversation improved. Gastrointestinal and deep venous thrombosis prophylaxis given. We will follow up. Taylor Recinos MD MTDD
== END 2017-10-29 14:54 | disposition home or self-care (01) | DRG 65 ==
LOC: C.ER 14:51 → C.9E 19:43 → C.6T 21:20
PROVIDERS: ADMIT Internal Medicine; ATTEND Internal Medicine
DX: I63.9 Cerebral infarction, unspecified (principal); Z68.41 Body mass index [BMI] 40.0-44.9, adult; G93.89 Other specified disorders of brain; I10 Essential (primary) hypertension; I34.0 Nonrheumatic mitral (valve) insufficiency; E66.9 Obesity, unspecified; E61.1 Iron deficiency; Z87.891 Personal history of nicotine dependence; Z79.82 Long term (current) use of aspirin; I65.29 Occlusion and stenosis of unspecified carotid artery; I69.320 Aphasia following cerebral infarction; R73.9 Hyperglycemia, unspecified; Z91.14 Patient's other noncompliance with medication regimen

== ENCOUNTER 2018-02-01 21:46 | Inpatient (IN) | payer BC, MEDICARE ==
[2018-02-01] MEDS ORDERED: Labetalol 5mg/ml (4ml) IVP STA (22:06)
[2018-02-01] MEDS ORDERED: Iodixanol 320 MG/ML 100 ML BOTTLE IV ONE (22:24)
--- NOTE | 2018-02-01 22:30 | C.PDOC ---
History Of Present Illness 62 year old female brought to the ED by family for slurred speech and left sided weakness ongoing for 2 days. As per family, patient was seen by PMD and CT scan was negative. Family noted symptoms persist which prompted ED visit. Chief Complaint (Nursing): Weakness/Neurological Deficit History Per: Patient, Family History/Exam Limitations: no limitations Onset/Duration Of Symptoms: Days (2) Current Symptoms Are (Timing): Still Present Past Medical History Reviewed: Historical Data, Nursing Documentation, Vital Signs Vital Signs: Last Vital Signs Temp 98.7 F 02/01/18 21:58 Pulse 90 02/01/18 21:58 Resp 16 02/01/18 21:58 BP 136/84 02/01/18 21:58 Pulse Ox 97 02/01/18 21:58 - Medical History PMH: HTN Denies: Chronic Kidney Disease Surgical History: No Surg Hx Family History: States: No Known Family Hx - Social History Hx Alcohol Use: No Hx Substance Use: No Review Of Systems Except As Marked, All Systems Reviewed And Found Negative. Neurological: Positive for: Weakness, Change in Speech Physical Exam - Physical Exam Appears: Non-toxic Skin: Warm, Dry Head: Atraumatic, Normacephalic Eye(s): bilateral: Normal Inspection, PERRL, EOMI Ear(s): Bilateral: Normal Nose: Normal Oral Mucosa: Moist Neck: Normal ROM, Supple Chest: Symmetrical Cardiovascular: Rhythm Regular Respiratory: Normal Breath Sounds, No Rales, No Rhonchi, No Wheezing Gastrointestinal/Abdominal: Soft, No Tenderness Extremity: Normal ROM Extremity: Bilateral: Normal Color And Temperature, Normal ROM Neurological/Psych: Oriented x3, Normal Speech, Normal Cognition, Normal Motor, Normal Sensation, Normal Reflexes, No Other (focal deficits ) Gait: Steady ED Course And Treatment - Laboratory Results Result Diagrams: 02/01/18 22:52 02/01/18 22:52 ECG: Interpreted By Me, Viewed By Me ECG Rhythm: Sinus Rhythm ECG Interpretation: Normal, No Acute Changes Interpretation Of ECG: NSR, normal tracings. Rate From EC O2 Sat by Pulse Oximetry: 97 (RA) Pulse Ox Interpretation: Normal - CT Scan/US CTA Head/neck Other Rad Studies (CT/US): Read By Radiologist, Radiology Report Reviewed CT/US Interpretation: EXAM: CTA Head and Neck with Intravenous Contrast. CLINICAL HISTORY: LEFT SIDE NUMBNESS. CODE STROKE. TECHNIQUE: Axial CTA images of the head and neck performed with intravenous contrast. MIP reconstructed images were created and reviewed. 644 mGy-cm. CONTRAST: With; Type and dosage was injected intravenously without incident. COMPARISON: None provided. FINDINGS: VASCULATURE: NECK: COMMON CAROTID ARTERIES. Mild atherosclerotic changes are present at left and right carotid bifurcation. No significant canal stenosis. No dissection or occlusion. EXTERNAL CAROTID ARTERIES. Patent. NECK: INTERNAL CAROTID ARTERIES. No stenosis by NASCET criteria. No dissection or occlusion. VERTEBRAL ARTERIES. No significant canal stenosis. No dissection or occlusion. HEAD: ANTERIOR CEREBRAL ARTERIES. No significant stenosis. No occlusion. No aneurysm. MIDDLE CEREBRAL ARTERIES. No significant stenosis. No occlusion. No aneurysm. POSTERIOR CEREBRAL ARTERIES. No significant stenosis. No occlusion. No aneurysm. BASILAR ARTERY. No significant stenosis. No occlusion. No aneurysm. OTHER: SOFT TISSUES. No acute finding. BONES. No acute osseous abnormality. IMPRESSION: Mild atherosclerotic changes are present at left and right carotid bifurcation. No significant canal stenosis. No dissection or occlusion. Unremarkable CTA of the head and neck otherwise. . Electronically signed on Feb 01, 2018 10:57:47 PM EST by: Beka Avelar M.D., SCOTT Certified By ABR & CBCCT. Fellowship Trained MRI and CT Specialist. CT head Other Rad Studies (CT/US): Read By Radiologist, Radiology Report Reviewed CT/US Interpretation: EXAM: CT Head without Intravenous Contrast. CLINICAL HISTORY: LEFT SIDE NUMBNESS, CODE STROKE. TECHNIQUE: Axial computed tomography images of the head/brain without intravenous contrast. 1169 mGy-cm. COMPARISON: MR\SD - BRAIN WITHOUT CONTRAST - 10/24/2017 01:22 PM EDT. FINDINGS: BRAIN. Chronic periventricular and subcortical microvascular disease is seen. Wedge-shaped hypodensity involving left occipital compatible with subacute to old infarct. VENTRICLES: There is generalized parenchymal atrophy noted as demonstrated by symmetrical dilatation of ventricles and sulci. ORBITS: The orbits are unremarkable. SINUSES AND MASTOIDS: The paranasal sinuses and mastoid air cells are clear. BONES: No fracture. SOFT TISSUES: Unremarkable. MISCELLANEOUS: No acute intracranial pathology. IMPRESSION: 1. There is generalized parenchymal atrophy noted as demonstrated by symmetrical dilatation of ventricles and sulci. 2. Chronic periventricular and subcortical microvascular disease is seen. 3. Wedge-shaped hypodensity involving left occipital compatible with subacute to old infarct. 4. No acute intracranial pathology. . Electronically signed on Feb 01, 2018 10:55:47 PM EST by: Beka Avelar M.D., SCOTT Certified By ABR & CBCCT. Fellowship Trained MRI and CT Specialist. . Reported to Dr. Pérez 10:57pm EST. Addendum electronically signed by Beka Avelar M.D., SCOTT Certified By ABR & CBCCT on February 01, 2018 10:58:14 PM EST NIHSS Stroke Scale 2 - Date/Time Evaluation Performed Date Performed: 02/01/18 Time Performed: 22:15 When Was NIHSS Performed: Baseline - How Severe is the Stroke Level of Consciousness: 0=Alert LOC to Questions: 0=Both comments correct LOC to commands: 0=Obeys both correctly Best Gaze: 0=Normal Visual: 0=No visual loss Facial: 0=Normal Motor Arm - Left: 0=No drift Motor Arm - Right: 0=No drift Motor Leg - Left: 0=No drift Motor Leg - Right: 0=No drift Limb Ataxia: 0=Absent Sensory: 0=Normal Best Language: 0=No aphasia Dysarthia: 0=Normal articulation Extinction & Inattention (Neglect): 0=Normal, no object Score: 0 Medical Decision Making Medical Decision Making: Plan - Bloodwork - CTA head/neck - CT head - EKG [address] Pike, Neurology, for consult. Disposition Discussed With : Shannon Kaur Doctor Will See Patient In The: Hospital Counseled Patient/Family Regarding: Diagnosis - Disposition Disposition: HOSPITALIZED Disposition Time: 23:13 Condition: STABLE - POA Present On Arrival: None - Clinical Impression Clinical Impression: Old cerebrovascular accident (CVA) without late effect, TIA (transient ischemic attack) - Scribe Statement The provider has reviewed the documentation as recorded by the Scribe Kasia Mi All medical record entries made by the Scribe were at my direction and personally dictated by me. I have reviewed the chart and agree that the record accurately reflects my personal performance of the history, physical exam, medical decision making, and the department course for this patient. I have also personally directed, reviewed, and agree with the discharge instructions and disposition.
[2018-02-01 23:01] LABS: BASO % 0.4 % (0.0-2.0); EOS # 0.2 K/uL (0.0-0.7); HEMOGLOBIN 10.5 g/dL (11.0-16.0); LYMPH # 2.3 K/uL (1.0-4.3); MEAN CORPUSCULAR HEMOGLOBIN 27.8 pg (27.0-31.0); MEAN CORPUSCULAR HGB CONC 33.6 g/dL (33.0-37.0); MONO # 0.8 K/uL (0.0-0.8); MONO % 8.4 % (0.0-10.0); NEUT # 6.3 K/uL (1.8-7.0); NEUT % 65.2 % (50.0-75.0); RBC 3.78 Mil/uL (3.80-5.20); RED CELL DISTRIBUTION WIDTH 16.1 % (11.5-14.5); WHITE BLOOD COUNT 9.6 K/uL (4.8-10.8)
[2018-02-01 23:02] LABS: MEAN CELL VOLUME 82.6 fL (81.0-99.0)
[2018-02-01 23:10] LABS: INR 1.2; PROTHROMBIN TIME 13.1 SECONDS (9.7-12.2)
[2018-02-01 23:19] LABS: ALB/GLOB RATIO 1.1 (1.0-2.1); ALBUMIN 3.8 g/dL (3.5-5.0); CALCIUM 9.7 mg/dl (8.6-10.4)
[2018-02-01] MEDS ORDERED: Sodium Chloride 0.9% 1,000 ML IV SCH (23:30)
[2018-02-02] MEDS: Pantoprazole 40 mg EC Tab PO SCH (09:24)
[2018-02-02] MEDS ORDERED: Metoprolol Succinate 50 mg XL Tab PO SCH (10:00)
--- NOTE | 2018-02-02 10:43 | CP.PCM.CON ---
History of Present Illness - History of Present Illness History of Present Illness: Neurology consult dictated. Patients neuro exam is normal. Stroke workup Please discontinue all bp meds Lipid profile PT ST OT MRI Brain without contrast Thank you Dr. Pike neurology Past Patient History - Past Medical History & Family History Past Medical History?: Yes - Past Social History Smoking Status: Former Smoker - CARDIAC Hx Hypertension: Yes - PULMONARY Hx Respiratory Disorders: No - NEUROLOGICAL Hx Neurological Disorder: No HX Cerebrovascular Accident: Yes (10/2017) - HEENT Hx HEENT Problems: No - RENAL Hx Chronic Kidney Disease: No - HEMATOLOGICAL/ONCOLOGICAL Hx Blood Disorders: No - INTEGUMENTARY Hx Dermatological Problems: No - MUSCULOSKELETAL/RHEUMATOLOGICAL Hx Falls: No - GASTROINTESTINAL Hx Gastrointestinal Disorders: No - GENITOURINARY/GYNECOLOGICAL Hx Genitourinary Disorders: No - PSYCHIATRIC Hx Substance Use: No - SURGICAL HISTORY Hx Surgeries: No - ANESTHESIA Hx Anesthesia: No Meds Allergies/Adverse Reactions: Allergies Allergy/AdvReac Type Severity Reaction Status Date / Time No Known Allergies Allergy Verified 02/01/18 22:02 - Medications Medications: Current Medications Aspirin (Ecotrin) 81 mg PO DAILY [facility] Last Admin: 02/02/18 09:24 Dose: 81 mg Enalapril Maleate (Vasotec) 20 mg PO BID [facility] Last Admin: 02/02/18 09:24 Dose: 20 mg Hydralazine HCl (Apresoline) 25 mg PO BID [facility] Last Admin: 02/02/18 09:24 Dose: 25 mg Sodium Chloride (Sodium Chloride 0.9%) 1,000 mls @ 60 mls/hr IV .[id number] [facility] Last Admin: 02/02/18 01:45 Dose: 60 mls/hr Metoprolol Succinate (Toprol Xl) 50 mg PO DAILY [facility] Last Admin: 02/02/18 09:24 Dose: 50 mg Pantoprazole Sodium (Protonix Ec Tab) 40 mg PO DAILY [facility] Last Admin: 02/02/18 09:24 Dose: 40 mg Rosuvastatin Calcium (Crestor) [address] [facility] Results - Vital Signs Recent Vital Signs: Last Vital Signs Temp 98.4 F 02/02/18 08:39 Pulse 77 02/02/18 09:22 Resp 20 02/02/18 08:39 BP 146/86 02/02/18 09:24 Pulse Ox 100 02/02/18 08:39 - Labs Result Diagrams: 02/01/18 22:52 02/01/18 22:52 Labs: Laboratory Results - last 24 hr 02/01/18 02/01/18 02/01/18 22:52 22:52 22:52 WBC 9.6 RBC 3.78 L Hgb 10.5 L D Hct 31.2 L MCV 82.6 D MCH 27.8 MCHC 33.6 RDW 16.1 H Plt Count 272 MPV 7.0 L Neut % (Auto) 65.2 Lymph % (Auto) 24.0 [place] % (Auto) 8.4 Eos % (Auto) 2.0 Baso % (Auto) 0.4 Neut # (Auto) 6.3 Lymph # (Auto) 2.3 [place] # (Auto) 0.8 Eos # (Auto) 0.2 Baso # (Auto) 0.0 PT 13.1 H INR 1.2 APTT 32 Sodium 137 Potassium 4.2 Chloride 103 Carbon Dioxide 23 Anion Gap 15 BUN 24 H Creatinine 1.5 H Est GFR ( Amer) 42 Est GFR (Non-Af Amer) 35 Random Glucose 110 H Hemoglobin A1c Calcium 9.7 Total Bilirubin 0.4 AST 32 ALT 28 Alkaline Phosphatase 70 Total Protein 7.1 Albumin 3.8 Globulin 3.3 Albumin/Globulin Ratio 1.1 Blood Type Antibody Screen 02/01/18 02/01/18 22:52 22:52 WBC RBC Hgb Hct MCV MCH MCHC RDW Plt Count MPV Neut % (Auto) Lymph % (Auto) [place] % (Auto) Eos % (Auto) Baso % (Auto) Neut # (Auto) Lymph # (Auto) [place] # (Auto) Eos # (Auto) Baso # (Auto) PT INR APTT Sodium Potassium Chloride Carbon Dioxide Anion Gap BUN Creatinine Est GFR ( Amer) Est GFR (Non-Af Amer) Random Glucose Hemoglobin A1c 6.0 Calcium Total Bilirubin AST ALT Alkaline Phosphatase Total Protein Albumin Globulin Albumin/Globulin Ratio Blood Type A POSITIVE Antibody Screen Negative
--- NOTE | 2018-02-02 10:47 | CT ---
Date of service: 02/01/2018 PROCEDURE: CT HEAD WITHOUT CONTRAST. HISTORY: code stroke COMPARISON: The the TECHNIQUE: Axial computed tomography images were obtained through the head/brain without intravenous contrast. Radiation dose: Total exam DLP = 1169.97 mGy-cm. This CT exam was performed using one or more of the following dose reduction techniques: Automated exposure control, adjustment of the mA and/or kV according to patient size, and/or use of iterative reconstruction technique. FINDINGS: HEMORRHAGE: No acute parenchymal, subarachnoid or extra-axial hemorrhage. BRAIN: Moderate diffuse confluent chronic white matter ischemic changes seen extending peripherally into the deep and subcortical white matter both cerebral hemispheres more significant on the left than right.. There is also a discrete chronic infarct left posterior temporal parietal watershed zone. In addition, there is extension of these changes into white matter tracts of both basal nuclei with multiple more discrete chronic bilateral basal nuclei lacunar type infarcts. The note the possibility of a small hyperacute infarct not excluded on this study. Clinical correlation recommended. No obvious parenchymal nor extra-axial mass or collection seen on this noncontrast exam. Moderate generalized volume loss.. VENTRICLES: No obstructive hydrocephalus. CALVARIUM: Unremarkable. PARANASAL SINUSES: Unremarkable as visualized. No significant inflammatory changes. MASTOID AIR CELLS: Unremarkable as visualized. No inflammatory changes. OTHER FINDINGS: None. IMPRESSION: Moderate diffuse confluent chronic white matter ischemic changes seen extending peripherally into the deep and subcortical white matter both cerebral hemispheres more significant on the left than right.. There is also a discrete chronic infarct left posterior temporal parietal watershed zone. In addition, there is extension of these changes into white matter tracts of both basal nuclei with multiple more discrete chronic bilateral basal nuclei lacunar type infarcts. The note the possibility of a small hyperacute infarct not excluded on this study. Clinical correlation recommended. Moderate atrophy.
--- NOTE | 2018-02-02 13:47 | MRI ---
Date of service: 02/02/2018 PROCEDURE: MRI BRAIN WITHOUT CONTRAST HISTORY: hx cva, code stroke COMPARISON: Comparison made with CT scan and CTA brain both dated 02/01/2018. Comparison also made with prior MRI of the brain 10/24/2017. TECHNIQUE: Multiplanar, multisequence MR images of the brain were obtained without intravenous contrast enhancement. FINDINGS: HEMORRHAGE: No acute parenchymal, subarachnoid or extra-axial hemorrhage. Questionable tiny of hemosiderin deposit versus microcalcification right posterior temporoparietal deep white matter. DWI: There are small acute and/or subacute infarct changes seen in the right minor radiata extending superiorly into the centrum semiovale.. BRAIN PARENCHYMA: Moderate to significant diffuse and confluent chronic white matter ischemic changes seen extending peripherally into the deep and subcortical white matter both cerebral hemispheres.. Mild chronic ischemic changes left aspect of the yue. The. Tiny chronic infarct posterior aspect right middle cerebellar peduncle Moderate generalized volume loss. No obvious parenchymal nor extra-axial mass or collection seen on this noncontrast exam. Partially empty sella. VENTRICLES: No obstructive hydrocephalus. CRANIUM: Unremarkable. ORBITS: Grossly unremarkable. PARANASAL SINUSES/MASTOIDS: Clear VASCULAR SYSTEM: Visualized major vascular flow voids at skull base patent. OTHER FINDINGS: None. IMPRESSION: There are acute/subacute infarct changes in the right minor radiata extending superiorly into the right centrum semiovale the. Extensive chronic white matter and basal nuclei ischemic changes. No evidence of acute intracranial hemorrhage. Moderate generalized volume loss. Note that these findings were discussed with ICU nurse Narciso at approximately 1:30 p.m. with written down and read back verification.
--- NOTE | 2018-02-02 16:45 | CT ---
Date of service: 02/01/2018. PROCEDURE: CT Angiography of the neck and brain with contrast. HISTORY: Slurred speech and weakness earlier COMPARISON: Comparison made with concurrent CT scan brain TECHNIQUE: Contiguous helical/transaxial images of the neck were obtained from the level of the vertex of the skull to the superior mediastinum in the arteriographic phase of enhancement. Coronal and sagittal reformats or also generated. IV contrast dose: 100 cc Visipaque 320 Radiation dose: Total exam DLP = 644.93 mGy-cm. This CT exam was performed using one or more of the following dose reduction techniques: Automated exposure control, adjustment of the mA and/or kV according to patient size, and/or use of iterative reconstruction technique.. FINDINGS: Some very minor calcified plaque seen along the aortic arch and the origins of great vessels. No occlusion or significant stenosis. The common carotid arteries are patent. Some minor calcified plaque seen along the lateral margin the left carotid bifurcation and posterior aspect of the right carotid bifurcation without occlusion or significant stenosis. The distal internal carotid arteries including the petrous cavernous and supraclinoid segments are widely patent. Both vertebral arteries are patent throughout right-sided which is slightly larger in caliber/more dominant than the left side. Basilar artery is patent. The visualized major branches of the sun'aq of will also are also patent. The distal branches of the anterior middle and posterior cerebral arteries are patent and relatively symmetric. No evidence of large aneurysm nor vascular malformation. Incidental note made of 1 or 2 small low-attenuation foci within the left lobe of the thyroid gland. Follow-up thyroid ultrasound recommended. Mild multilevel degenerative spondylosis of the six cervical spine IMPRESSION: Minor calcified plaque changes both carotid bifurcations without evidence Of occlusion or significant stenosis. The intra cerebral vasculature is patent without evidence of large aneurysm nor vascular malformation. One or 2 small low-attenuation lesions left lobe thyroid gland. Follow-up thyroid ultrasound recommended.
--- NOTE | 2018-02-02 16:55 | MRI ---
Date of service: 02/02/2018 PROCEDURE: Magnetic Resonance Angiography Brain HISTORY: hx CVA COMPARISON: Comparison made with prior CT scan and CTA brain obtained 02/01/2018 TECHNIQUE: 3D time of flight MR angiography of the intracranial arteries was performed. Rotating maximum intensity projection images were generated. FINDINGS: INTERNAL CAROTID ARTERIES: Unremarkable. The skull base, petrous, cavernous and supraclinoid segments are bilaterally widely patient. ANTERIOR CEREBRAL ARTERIES: The slight asymmetry of the A1 segments left-sided which is slightly larger in caliber, more the dominant than the right. A1 and A2 segments are widely patent. Smaller distal branches unremarkable, as visualized. MIDDLE CEREBRAL ARTERIES: Unremarkable. M1 and M2 segments are widely patent. Perisylvian branches grossly symmetric. POSTERIOR CIRCULATION: Basilar artery vertebral and basilar arteries are patent. There is a prominent right sided posterior communicating artery. The distal posterior cerebral arteries appear patent. ANEURYSM/ VASCULAR MALFORMATIONS: None. OTHER FINDINGS: None. IMPRESSION: Unremarkable MR angiography of the brain.
--- NOTE | 2018-02-02 17:31 | CP.PCM.PN ---
Subjective - Date & Time of Evaluation Date of Evaluation: 02/02/18 Time of Evaluation: 17:31 - Subjective Subjective: PT reports feeling well Family at bed sides states she has been gradually weaker with gate instability over the last week was not taking asa, but daughter states she started giving it to her the last week Pt has had a cva in the past pt is confused at times Objective - Vital Signs/Intake and Output Vital Signs (last 24 hours): Temp Pulse Resp BP Pulse Ox 98.4 F 77 20 146/86 100 02/02/18 08:39 02/02/18 09:22 02/02/18 08:39 02/02/18 09:24 02/02/18 08:39 - Medications Medications: Current Medications Aspirin (Ecotrin) 81 mg PO DAILY [facility] Last Admin: 02/02/18 09:24 Dose: 81 mg Clopidogrel Bisulfate (Plavix) 75 mg PO DAILY [facility] Pantoprazole Sodium (Protonix Ec Tab) 40 mg PO DAILY [facility] Last Admin: 02/02/18 09:24 Dose: 40 mg Rosuvastatin Calcium (Crestor) 20 mg PO HS [facility] - Labs Labs: 02/01/18 22:52 02/01/18 22:52 PT 13.1 SECONDS (9.7-12.2) H 02/01/18 22:52 INR 1.2 02/01/18 22:52 APTT 32 SECONDS (21-34) 02/01/18 22:52 - Constitutional Appears: Well, Non-toxic, No Acute Distress - ENT Exam ENT Exam: Mucous Membranes Moist - Respiratory Exam Respiratory Exam: Clear to Ausculation Bilateral - Cardiovascular Exam Cardiovascular Exam: RRR, +S1, +S2. absent: JVD - GI/Abdominal Exam GI & Abdominal Exam: Soft, Normal Bowel Sounds (pt sitting up in bed, unsteady gate) Assessment and Plan - Assessment and Plan (Free Text) Assessment: 62 year old with acute cva minor radiata asa, added plavix as she has been on asa the last week stroke is acute/subacute creat is elevated so no lovenox Heparin if recommeded by neuro as her cva seems subacute based on clinical presentation discussed care with family , she may need jail care
--- NOTE | 2018-02-02 17:33 | CP.PCM.HP ---
History of Present Illness - History of Present Illness History of Present Illness: 62 year old with ho cva who has been gradually "not acting like self for the last 2 weeks" PT had a ct oupt which was negative, but was brought to the ER because her gait has been unsteady. PMH: htn cva hypercholesterolemia Anemia psh: NKDA social livers alone daughter lives in same complex quit smoking 5 years ago Present on Admission - Present on Admission Any Indicators Present on Admission: No Review of Systems - Constitutional Constitutional: absent: Anorexia, Chills - EENT Eyes: absent: Blind Spots Nose/Mouth/Throat: absent: Nasal Congestion - Cardiovascular Cardiovascular: absent: Chest Pain, Diaphoresis - Respiratory Respiratory: absent: Cough, Dyspnea Past Patient History - Past Medical History & Family History Past Medical History?: Yes - Past Social History Smoking Status: Former Smoker - CARDIAC Hx Cardiac Disorders: No Hx Congestive Heart Failure: No Hx Hypercholesterolemia: No Hx Hypertension: Yes - PULMONARY Hx Chronic Obstructive Pulmonary Disease (COPD): No Hx Pneumonia: No - NEUROLOGICAL HX Cerebrovascular Accident: No - HEENT Hx HEENT Problems: No - RENAL Hx Renal Failure: No - ENDOCRINE/METABOLIC Hx Diabetes Mellitus Type 1: No Hx Diabetes Mellitus Type 2: No Hx Hypothyroidism: No - HEMATOLOGICAL/ONCOLOGICAL Hx Cancer: No - INTEGUMENTARY Hx Dermatological Problems: No - MUSCULOSKELETAL/RHEUMATOLOGICAL Hx Arthritis: No Hx Rheumatoid Arthritis: No - GASTROINTESTINAL Hx Gastroesophageal Reflux: No - GENITOURINARY/GYNECOLOGICAL Hx Genitourinary Disorders: No - PSYCHIATRIC Hx Substance Use: No - SURGICAL HISTORY Hx Surgeries: No - ANESTHESIA Hx Anesthesia: No Meds Home Medications: Home Medication List Medication Instructions Recorded Confirmed Type Clopidogrel [Plavix] 75 mg PO DAILY 30 Days tab 02/06/18 Rx Allergies/Adverse Reactions: Allergies Allergy/AdvReac Type Severity Reaction Status Date / Time No Known Allergies Allergy Verified 02/01/18 22:02 Physical Exam - Constitutional Appears: Non-toxic - ENT Exam ENT Exam: Mucous Membranes Moist - Neck Exam Neck exam: Positive for: Normal Inspection - Respiratory Exam Respiratory Exam: Clear to Auscultation Bilateral - Cardiovascular Exam Cardiovascular Exam: REGULAR RHYTHM, RRR, +S1, +S2. absent: JVD - GI/Abdominal Exam GI & Abdominal Exam: Normal Bowel Sounds, Soft (gait is unsteady) Results - Vital Signs Recent Vital Signs: Last Vital Signs Temp 98.4 F 02/02/18 08:39 Pulse 77 02/02/18 09:22 Resp 20 02/02/18 08:39 BP 146/86 02/02/18 09:24 Pulse Ox 100 02/02/18 08:39 - Labs Result Diagrams: 02/06/18 07:53 02/06/18 07:53 Labs: Laboratory Results - last 24 hr 02/01/18 02/01/18 02/01/18 22:52 22:52 22:52 WBC 9.6 RBC 3.78 L Hgb 10.5 L D Hct 31.2 L MCV 82.6 D MCH 27.8 MCHC 33.6 RDW 16.1 H Plt Count 272 MPV 7.0 L Neut % (Auto) 65.2 Lymph % (Auto) 24.0 [place] % (Auto) 8.4 Eos % (Auto) 2.0 Baso % (Auto) 0.4 Neut # (Auto) 6.3 Lymph # (Auto) 2.3 [place] # (Auto) 0.8 Eos # (Auto) 0.2 Baso # (Auto) 0.0 PT 13.1 H INR 1.2 APTT 32 Sodium 137 Potassium 4.2 Chloride 103 Carbon Dioxide 23 Anion Gap 15 BUN 24 H Creatinine 1.5 H Est GFR ( Amer) 42 Est GFR (Non-Af Amer) 35 Random Glucose 110 H Hemoglobin A1c Calcium 9.7 Total Bilirubin 0.4 AST 32 ALT 28 Alkaline Phosphatase 70 Total Protein 7.1 Albumin 3.8 Globulin 3.3 Albumin/Globulin Ratio 1.1 Blood Type Antibody Screen 02/01/18 02/01/18 22:52 22:52 WBC RBC Hgb Hct MCV MCH MCHC RDW Plt Count MPV Neut % (Auto) Lymph % (Auto) [place] % (Auto) Eos % (Auto) Baso % (Auto) Neut # (Auto) Lymph # (Auto) [place] # (Auto) Eos # (Auto) Baso # (Auto) PT INR APTT Sodium Potassium Chloride Carbon Dioxide Anion Gap BUN Creatinine Est GFR ( Amer) Est GFR (Non-Af Amer) Random Glucose Hemoglobin A1c 6.0 Calcium Total Bilirubin AST ALT Alkaline Phosphatase Total Protein Albumin Globulin Albumin/Globulin Ratio Blood Type A POSITIVE Antibody Screen Negative Assessment & Plan - Assessment and Plan (Free Text) Assessment: 63 year old with unsteady gate htn admti to [facility] tele MRI and MRA of brain lipid panel neuro eval asa statin echo carotid us
[2018-02-03 09:01] LABS: MEAN CELL VOLUME 83.3 fL (81.0-99.0); MEAN CORPUSCULAR HEMOGLOBIN 28.6 pg (27.0-31.0); MEAN CORPUSCULAR HGB CONC 34.3 g/dL (33.0-37.0); MEAN PLATELET VOLUME 7.8 fL (7.2-11.7); RBC 3.86 Mil/uL (3.80-5.20); RED CELL DISTRIBUTION WIDTH 15.6 % (11.5-14.5); WHITE BLOOD COUNT 8.5 K/uL (4.8-10.8)
[2018-02-03] MEDS: Pantoprazole 40 mg EC Tab PO SCH (09:43)
[2018-02-03 14:29] LABS: IRON 38 ug/dL (37-170)
[2018-02-03 14:39] LABS: % IRON SATURATION 12 (20-55); TOTAL IRON BINDING CAPACITY 317 ug/dL (250-450)
--- NOTE | 2018-02-03 19:03 | VASCLAB ---
Date of service: 02/02/2018 PROCEDURE: Carotid Duplex Exam. HISTORY: r/o catotid stenosis COMPARISON: 10/24/2017. TECHNIQUE: Grayscale and duplex Doppler evaluation of the cervical carotid and vertebral arteries were performed. The common carotid, carotid bifurcations and cervical Internal Carotid Artery (ICA) and proximal External Carotid Artery (ECA) were evaluated. The vertebral arteries were evaluated for gross patency and flow direction. Report prepared by JONI Olivas, RVT FINDINGS: RIGHT CAROTID ARTERIES: 1. Common Carotid Artery: No significant focal plaque formation of the right common carotid artery. Maximum Peak Systolic velocity: 95.1 cm/sec: End-diastolic velocity 23.3 cm/sec. 2. Carotid Bifurcation: Heterogeneous plaque formation. Maximum Peak Systolic velocity: 110.8 cm/sec: End-diastolic velocity 15 cm/sec. 3. Internal Carotid Artery: Mild diffuse homogeneous plaque. Intimal hyperplasia. 3.1. Proximal Segment: Peak systolic velocity 53.7 cm/sec: End-diastolic velocity 6.6 cm/sec 3.2. Middle Segment: Peak systolic velocity 53 point sub cm/sec: End-diastolic velocity 9.2 cm/sec 3.3. Distal Segment: Peak systolic velocity 66 cm/sec: End-diastolic velocity 11 cm/sec 4. External Carotid Artery: No significant focal plaque formation. Peak systolic velocity 114.7 cm/sec 5. ICA/CCA Ratio: 1.4 LEFT CAROTID ARTERIES: 1. Common Carotid Artery: No significant focal plaque formation of the left common carotid artery. Maximum Peak Systolic velocity: 97 point cm/sec: End-diastolic velocity 20.4 cm/sec. 2. Carotid Bifurcation: Mild homogeneous plaque formation. Maximum Peak Systolic velocity: 83.3 cm/sec: End-diastolic velocity 17.1 cm/sec. 3. Internal Carotid Artery: Mild irregular homogeneous plaque. Intimal hyperplasia. 3.1. Proximal Segment: Peak systolic velocity 102.7 cm/sec: End-diastolic velocity 18.7 cm/sec 3.2. Middle Segment: Peak systolic velocity 94.7 cm/sec: End-diastolic velocity 26.8 cm/sec 3.3. Distal Segment: Peak systolic velocity 94.7 cm/sec: End-diastolic velocity 30 cm/sec 4. External Carotid Artery: No significant focal plaque formation. Peak systolic velocity 143.1 cm/sec 5. ICA/CCA Ratio: 1.1 VERTEBRAL ARTERIES: 1. Right Vertebral Artery: The right vertebral artery flow direction is antegrade. 2. Left Vertebral Artery: The left vertebral artery flow direction is antegrade. OTHER FINDINGS: IMPRESSION: RIGHT: Duplex scan does not suggest hemodynamically significant stenosis of the right extracranial carotid arteries. LEFT: Duplex scan does not suggest hemodynamically significant stenosis of the left extracranial carotid arteries.
[2018-02-04] MEDS: Pantoprazole 40 mg EC Tab PO SCH (09:51)
--- NOTE | 2018-02-04 10:18 | CON ---
DATE: 02/02/2018 SUBJECTIVE: Neurology consult called by emergency room physician for Ms. Alice Valdez. Ms. Valdez is a 62-year-old woman with past medical history of hypertension, who came in yesterday for dysarthria and left-sided weakness with the duration for two days. Upon admission to the ER, code stroke was called, but the patient was not considered code stroke because the deficits had completely resolved at that time. She was not a tPA candidate. NIH stroke scale was 0 at the time of presentation. Labs were normal. Vital signs were normal. Today, the patient is doing well. She has normal neurological exam and states this has never happened before. CT of the head was done, which showed disease, official report as of yet not available. MRA was done, report not available. Carotid Doppler was done, report not available. Echocardiogram was done, report not available. Head CTA was done, report not available as of yet. Labs were done as well and they are within normal limits except for BUN is 24, creatinine is 1.5, glucose is 110. Coag shows a PT of 13.1. The patient was not on any medications at home. She is currently on aspirin, enalapril, hydralazine, metoprolol, pantoprazole, lovastatin, and sodium chloride. PHYSICAL EXAMINATION: The patient has normal neurological exam. IMPRESSION AND PLAN: This is a 62-year-old woman with possible transient ischemic attack, currently National Institutes of Health Stroke Scale is 0; however, considering that this event occurred two days ago, it is beneficial to obtain an MRI of the brain as opposed to an MRA, which is not done as of yet. The MRI should be done without contrast. The patient should be on aspirin 325 mg and her blood pressure medications should be stopped. In terms of stroke workup, echocardiogram has been done, carotid Doppler has been done, these reports were read and reported. In addition, lipid profile needs to be done. Physical therapy, speech therapy and occupational therapy should be ordered. Thank you for this interesting consult. Eduardo Pike MD [facility] # [id number]
--- NOTE | 2018-02-04 10:35 | CP.PCM.PN ---
<Susy Marquis - Last Filed: 02/04/18 14:34> Subjective - Date & Time of Evaluation Date of Evaluation: 02/04/18 Time of Evaluation: 09:00 - Subjective Subjective: Neurology Follow Up Note Patient was seen and examined at bedside. She is alert, oriented to person, place but not time (stated it was 2001). She was able to identify her son and daughter who were both present in the room. Patient returned from ambulating with PT, who needed assistance with a walker. ROS unremarkable, unless otherwise noted. Objective - Vital Signs/Intake and Output Vital Signs (last 24 hours): Temp Pulse Resp BP Pulse Ox 98.3 F 88 20 157/84 H 99 02/04/18 07:00 02/04/18 07:00 02/04/18 07:00 02/04/18 07:00 02/04/18 07:00 - Medications Medications: Current Medications Aspirin (Ecotrin) 81 mg PO DAILY [facility] Last Admin: 02/04/18 09:51 Dose: 81 mg Clopidogrel Bisulfate (Plavix) 75 mg PO DAILY [facility] Last Admin: 02/04/18 09:51 Dose: 75 mg Pantoprazole Sodium (Protonix Ec Tab) 40 mg PO DAILY [facility] Last Admin: 02/04/18 09:51 Dose: 40 mg Rosuvastatin Calcium (Crestor) 20 mg PO HS [facility] Last Admin: 02/03/18 21:28 Dose: 20 mg - Labs Labs: 02/03/18 08:47 02/01/18 22:52 PT 13.1 SECONDS (9.7-12.2) H 02/01/18 22:52 INR 1.2 02/01/18 22:52 APTT 32 SECONDS (21-34) 02/01/18 22:52 - Constitutional Appears: No Acute Distress - Head Exam Head Exam: NORMAL INSPECTION, NORMOCEPHALIC - Eye Exam Eye Exam: EOMI, Normal appearance, PERRL. absent: Nystagmus, Scleral icterus Pupil Exam: NORMAL ACCOMODATION - ENT Exam ENT Exam: Mucous Membranes Dry - Respiratory Exam Respiratory Exam: Clear to Ausculation Bilateral - Cardiovascular Exam Cardiovascular Exam: +S1, +S2 - GI/Abdominal Exam GI & Abdominal Exam: Soft, Normal Bowel Sounds. absent: Distended, Tenderness - Neurological Exam Neurological Exam: Alert, Awake Neuro motor strength exam: Left Upper Extremity: 5, Right Upper Extremity: 5, Left Lower Extremity: 4, Right Lower Extremity: 5 - Psychiatric Exam Psychiatric exam: Normal Affect, Normal Mood - Skin Skin Exam: Dry, Intact, Normal Color, Warm Assessment and Plan - Assessment and Plan (Free Text) Plan: Right Minor Radiata Infarct Imaging: - Head/ Neck CTA: Minor calcified plaque changes both carotid bifurcations without evidence Of occlusion or significant stenosis. The intra cerebral vasculature is patent without evidence of large aneurysm nor vascular malforma tion. One or 2 small low-attenuation lesions left lobe thyroid gland. Follow-up thyroid ultrasound recommended. - Head MRA: Unremarkable MR angiography of the brain. - Brain MRI: There are acute/subacute infarct changes in the right minor radiata extending superiorly into the right centrum semiovale. Extensive chronic white matter and basal nuclei ischemic changes. No evidence of acute intracranial hemorrhage. Moderate generalized volume loss. Management: - Continue ASA, Plavix, and high dose statin. - Continue with PT/ OT. - Stressed the importance in medication compliance to prevent future strokes, with the patient's daughter. Thank you for the consult. Please reconsult as necessary. Case discussed with Susy Tucker DO, PGY2 <Jaden Adams - Last Filed: 02/05/18 17:58> Objective - Vital Signs/Intake and Output Vital Signs (last 24 hours): Temp Pulse Resp BP Pulse Ox 98.9 F 91 H 18 149/96 H 95 02/05/18 16:00 02/05/18 16:00 02/05/18 16:00 02/05/18 16:00 02/05/18 16:00 Intake and Output: 02/05/18 02/05/18 06:59 18:59 Intake Total 800 Balance 800 - Medications Medications: Current Medications Amlodipine Besylate (Norvasc) 10 mg PO DAILY [facility] Last Admin: 02/05/18 09:16 Dose: 10 mg Aspirin (Ecotrin) 81 mg PO DAILY [facility] Last Admin: 02/05/18 09:16 Dose: 81 mg Clopidogrel Bisulfate (Plavix) 75 mg PO DAILY [facility] Last Admin: 02/05/18 09:16 Dose: 75 mg Pantoprazole Sodium (Protonix Ec Tab) 40 mg PO DAILY [facility] Last Admin: 02/05/18 09:16 Dose: 40 mg Rosuvastatin Calcium (Crestor) 20 mg PO HS [facility] Last Admin: 02/04/18 21:35 Dose: 20 mg - Labs Labs: 02/03/18 08:47 02/01/18 22:52 PT 13.1 SECONDS (9.7-12.2) H 02/01/18 22:52 INR 1.2 02/01/18 22:52 APTT 32 SECONDS (21-34) 02/01/18 22:52 Attending/Attestation - Attestation I have personally seen and examined this patient.: Yes I have fully participated in the care of the patient.: Yes I have reviewed all pertinent clinical information, including history, physical exam and plan: Yes Notes (Text): 02/05/18 17:58 I agree with the assessment and plan. The patient requires better medication compliance and manager social assistance as well.
--- NOTE | 2018-02-04 17:21 | CP.PCM.PN ---
Subjective - Date & Time of Evaluation Date of Evaluation: 02/04/18 Time of Evaluation: 17:21 - Subjective Subjective: Pt seen, daughter at bedside. Pt states she feels well. Wants to go home. Still some confusion Denies chest pain or sbo Objective - Vital Signs/Intake and Output Vital Signs (last 24 hours): Temp Pulse Resp BP Pulse Ox 98.3 F 82 20 157/84 H 99 02/04/18 07:00 02/04/18 07:46 02/04/18 07:00 02/04/18 07:00 02/04/18 07:00 - Medications Medications: Current Medications Aspirin (Ecotrin) 81 mg PO DAILY [facility] Last Admin: 02/04/18 09:51 Dose: 81 mg Clopidogrel Bisulfate (Plavix) 75 mg PO DAILY [facility] Last Admin: 02/04/18 09:51 Dose: 75 mg Pantoprazole Sodium (Protonix Ec Tab) 40 mg PO DAILY [facility] Last Admin: 02/04/18 09:51 Dose: 40 mg Rosuvastatin Calcium (Crestor) 20 mg PO [facility] Last Admin: 02/03/18 21:28 Dose: 20 mg - Labs Labs: 02/03/18 08:47 02/01/18 22:52 PT 13.1 SECONDS (9.7-12.2) H 02/01/18 22:52 INR 1.2 02/01/18 22:52 APTT 32 SECONDS (21-34) 02/01/18 22:52 - Constitutional Appears: Well, Non-toxic - Eye Exam Eye Exam: Normal appearance - ENT Exam ENT Exam: Mucous Membranes Moist - Respiratory Exam Respiratory Exam: Clear to Ausculation Bilateral - Cardiovascular Exam Cardiovascular Exam: REGULAR RHYTHM, +S1, +S2. absent: JVD (gait not at baseline) Assessment and Plan - Assessment and Plan (Free Text) Plan: Coronary radiata cva asa,plavix statin bp; meds with holding parameters discussed rehab needs with pt and daughter assistant case manager aware
[2018-02-05] MEDS: Pantoprazole 40 mg EC Tab PO SCH (09:16)
--- NOTE | 2018-02-05 15:19 | CP.PCM.PN ---
Subjective - Date & Time of Evaluation Date of Evaluation: 02/05/18 Time of Evaluation: 16:03 - Subjective Subjective: Unremarkable last 24 hours spoke to nurse, no issues reported awating for rehab placement Objective - Vital Signs/Intake and Output Vital Signs (last 24 hours): Temp Pulse Resp BP Pulse Ox 98.2 F 88 20 130/89 97 02/05/18 08:00 02/05/18 08:00 02/05/18 08:00 02/05/18 08:00 02/05/18 08:00 Intake and Output: 02/05/18 02/05/18 06:59 18:59 Intake Total 800 Balance 800 - Medications Medications: Current Medications Amlodipine Besylate (Norvasc) 10 mg PO DAILY [facility] Last Admin: 02/05/18 09:16 Dose: 10 mg Aspirin (Ecotrin) 81 mg PO DAILY [facility] Last Admin: 02/05/18 09:16 Dose: 81 mg Clopidogrel Bisulfate (Plavix) 75 mg PO DAILY [facility] Last Admin: 02/05/18 09:16 Dose: 75 mg Pantoprazole Sodium (Protonix Ec Tab) 40 mg PO DAILY [facility] Last Admin: 02/05/18 09:16 Dose: 40 mg Rosuvastatin Calcium (Crestor) 20 mg PO HS [facility] Last Admin: 02/04/18 21:35 Dose: 20 mg - Labs Labs: 02/03/18 08:47 02/01/18 22:52 PT 13.1 SECONDS (9.7-12.2) H 02/01/18 22:52 INR 1.2 02/01/18 22:52 APTT 32 SECONDS (21-34) 02/01/18 22:52 - Constitutional Appears: Well, Non-toxic - Eye Exam Eye Exam: Normal appearance - ENT Exam ENT Exam: Mucous Membranes Moist - Respiratory Exam Respiratory Exam: Clear to Ausculation Bilateral - Cardiovascular Exam Cardiovascular Exam: RRR, +S1. absent: JVD Assessment and Plan - Assessment and Plan (Free Text) Plan: Acute Lira Radiata cva on asa and plavix gate issues awaiting for rehab awaiting for [facility] spoke to case management bp stable
[2018-02-06 07:59] LABS: BASO # 0.1 K/uL (0.0-0.2); BASO % 0.9 % (0.0-2.0); EOS # 0.2 K/uL (0.0-0.7); EOS % 2.6 % (0.0-4.0); HEMOGLOBIN 11.7 g/dL (11.0-16.0); LYMPH # 2.1 K/uL (1.0-4.3); LYMPH % 24.2 % (20.0-40.0); MEAN CELL VOLUME 82.6 fL (81.0-99.0); MEAN CORPUSCULAR HEMOGLOBIN 27.8 pg (27.0-31.0); MEAN CORPUSCULAR HGB CONC 33.6 g/dL (33.0-37.0); MEAN PLATELET VOLUME 7.5 fL (7.2-11.7); MONO # 0.7 K/uL (0.0-0.8); MONO % 8.1 % (0.0-10.0); NEUT # 5.7 K/uL (1.8-7.0); NEUT % 64.2 % (50.0-75.0); NRBC % 0.1 % (0.0-2.0); RBC 4.2 Mil/uL (3.80-5.20); RED CELL DISTRIBUTION WIDTH 15.4 % (11.5-14.5); WHITE BLOOD COUNT 8.9 K/uL (4.8-10.8)
[2018-02-06 08:20] VITALS: O2SAT 97
[2018-02-06 08:38] LABS: ALBUMIN 4.2 g/dL (3.5-5.0); CALCIUM 9.8 mg/dl (8.6-10.4)
[2018-02-06 09:15] LABS: ALB/GLOB RATIO 1.1 (1.0-2.1)
[2018-02-06] MEDS: Pantoprazole 40 mg EC Tab PO SCH (09:38)
--- NOTE | 2018-02-06 14:52 | CP.PCM.PN ---
Subjective - Date & Time of Evaluation Date of Evaluation: 02/06/18 Time of Evaluation: 14:51 - Subjective Subjective: PATIENT SEEN AND EXAMINED AT THE BEDSIDE Objective - Vital Signs/Intake and Output Vital Signs (last 24 hours): Temp Pulse Resp BP Pulse Ox 98.1 F 85 20 119/85 97 02/06/18 08:19 02/06/18 08:19 02/06/18 08:19 02/06/18 08:19 02/06/18 08:19 Intake and Output: 02/06/18 02/06/18 06:59 18:59 Intake Total 700 Balance 700 - Medications Medications: Current Medications Amlodipine Besylate (Norvasc) 10 mg PO DAILY [facility] Last Admin: 02/06/18 09:38 Dose: 10 mg Aspirin (Ecotrin) 81 mg PO DAILY [facility] Last Admin: 02/06/18 09:38 Dose: 81 mg Clopidogrel Bisulfate (Plavix) 75 mg PO DAILY [facility] Last Admin: 02/06/18 09:38 Dose: 75 mg Pantoprazole Sodium (Protonix Ec Tab) 40 mg PO DAILY [facility] Last Admin: 02/06/18 09:38 Dose: 40 mg Rosuvastatin Calcium (Crestor) 20 mg PO HS [facility] Last Admin: 02/05/18 21:15 Dose: 20 mg - Labs Labs: 02/06/18 07:53 02/06/18 07:53 PT 13.1 SECONDS (9.7-12.2) H 02/01/18 22:52 INR 1.2 02/01/18 22:52 APTT 32 SECONDS (21-34) 02/01/18 22:52 Assessment and Plan - Assessment and Plan (Free Text) Assessment: PL[facility] [place] [facility] [place] [facility] [place] FOR [place]ING ORDER CONTINUE HOME MEDICATION NEW PRESCRIPTION GIVEN PLAVIX 75 MG PO DAILY STOP TAKING VASOTEC/ HYDRALAZINE AND TROPOL XL ACTIVITY TOLERATED AND FACILITY PROTOCOL CALL DR GAO FOR FURTHER ORDER
[2018-02-06 15:48] VITALS: BP 115/75; PULSE 86; RESP 18; TEMP 98.2
--- NOTE | 2018-02-06 17:49 | CARD ---
APPROVED REPORT Date of service: 02/02/2018 EXAM: Two-dimensional and M-mode echocardiogram with Doppler and color Doppler. Other Information Quality : Technically LimitedRhythm : INDICATION CVA/TIA RISK FACTORS Hypertension Obesity 2D DIMENSIONS IVSd0.7 (0.7-1.1cm)Aortic Root (2D)3.6 (2.0-3.7cm) LVDd5.4 (3.9-5.9cm)PWd0.7 (0.7-1.1cm) LVDs2.9 (2.5-4.0cm)FS (%) 46.7 % LVEF (%)77.6 (>50%)IVC0.00 cm M-Mode DIMENSIONS Left Atrium (MM)3.12 (2.5-4.0cm)IVSd0.69 (0.7-1.1cm) Aortic Root3.05 (2.2-3.7cm)LVDd4.75 (4.0-5.6cm) Aortic Cusp Exc.1.49 (1.5-2.0cm)PWd0.87 (0.7-1.1cm) FS (%) 42 %LVDs2.74 (2.0-3.8cm) LVEF (%)73 (>50%) Mitral Valve MV E Pzlqmpoa92.7cm/sMV A Ltjboryf01.0cm/sE/A ratio0.6 TDI Lateral E' Peak V6.93cm/sMedial E' Peak V7.19cm/sE/Lateral E'7.7 E/Medial E'7.5 Tricuspid Valve TR Peak [id number]/sTR Peak Gr.[id number] LEFT VENTRICLE The left ventricle is normal size. There is normal left ventricular wall thickness. The left ventricular function is normal. The left ventricular ejection fraction is within the normal range. There is normal LV segmental wall motion. Transmitral Doppler flow pattern is abnormal. RIGHT VENTRICLE The right ventricle is normal size. ATRIA The left atrium size is normal. The right atrium size is normal. AORTIC VALVE The aortic valve is normal in structure. MITRAL VALVE The mitral valve is normal in structure. TRICUSPID VALVE There is mild tricuspid regurgitation. <Conclusion> Technically limited and difficult study. Normal LV systolic function. Diastolic dysfunction. Normal chamber size. Mild TR.
--- NOTE | 2018-02-07 15:56 | CP.PCM.DIS ---
Provider - Provider Date of Admission: 02/03/18 10:14 Attending physician: Shannon Burleson MD Time Spent in preparation of Discharge (in minutes): 30 Hospital Course - Lab Results Lab Results: Most Recent Lab Values WBC 8.9 K/uL (4.8-10.8) 02/06/18 07:53 RBC 4.20 Mil/uL (3.80-5.20) 02/06/18 07:53 Hgb 11.7 g/dL (11.0-16.0) 02/06/18 07:53 Hct 34.7 % (34.0-47.0) 02/06/18 07:53 MCV 82.6 fL (81.0-99.0) 02/06/18 07:53 MCH 27.8 pg (27.0-31.0) 02/06/18 07:53 MCHC 33.6 g/dL (33.0-37.0) 02/06/18 07:53 RDW 15.4 % (11.5-14.5) H 02/06/18 07:53 Plt Count 307 K/uL (130-400) 02/06/18 07:53 MPV 7.5 fL (7.2-11.7) 02/06/18 07:53 Neut % (Auto) 64.2 % (50.0-75.0) 02/06/18 07:53 Lymph % (Auto) 24.2 % (20.0-40.0) 02/06/18 07:53 [place] % (Auto) 8.1 % (0.0-10.0) 02/06/18 07:53 Eos % (Auto) 2.6 % (0.0-4.0) 02/06/18 07:53 Baso % (Auto) 0.9 % (0.0-2.0) 02/06/18 07:53 Neut # (Auto) 5.7 K/uL (1.8-7.0) 02/06/18 07:53 Lymph # (Auto) 2.1 K/uL (1.0-4.3) 02/06/18 07:53 [place] # (Auto) 0.7 K/uL (0.0-0.8) 02/06/18 07:53 Eos # (Auto) 0.2 K/uL (0.0-0.7) 02/06/18 07:53 Baso # (Auto) 0.1 K/uL (0.0-0.2) 02/06/18 07:53 PT 13.1 SECONDS (9.7-12.2) H 02/01/18 22:52 INR 1.2 02/01/18 22:52 APTT 32 SECONDS (21-34) 02/01/18 22:52 Sodium 139 mmol/L (132-148) 02/06/18 07:53 Potassium 4.2 mmol/L (3.6-5.2) 02/06/18 07:53 Chloride 104 mmol/L (98-107) 02/06/18 07:53 Carbon Dioxide 25 mmol/L (22-30) 02/06/18 07:53 Anion Gap 15 (10-20) 02/06/18 07:53 BUN 17 mg/dL (7-17) 02/06/18 07:53 Creatinine 1.2 mg/dL (0.7-1.2) 02/06/18 07:53 Est GFR ( Amer) 55 02/06/18 07:53 Est GFR (Non-Af Amer) 45 02/06/18 07:53 POC Glucose (mg/dL) 89 mg/dL (65-110) 02/06/18 16:22 Random Glucose 107 mg/dL (65-105) H 02/06/18 07:53 Hemoglobin A1c 6.0 % (4.2-6.5) 02/01/18 22:52 Calcium 9.8 mg/dl (8.6-10.4) 02/06/18 07:53 Iron 38 ug/dL (37-170) 02/03/18 13:57 TIBC 317 ug/dL (250-450) 02/03/18 13:57 % Saturation 12 (20-55) L 02/03/18 13:57 Ferritin 142.0 ng/mL 02/03/18 08:47 Total Bilirubin 0.6 mg/dL (0.2-1.3) 02/06/18 07:53 AST 36 U/L (14-36) 02/06/18 07:53 ALT 26 U/L (9-52) 02/06/18 07:53 Alkaline Phosphatase 75 U/L (38-126) 02/06/18 07:53 Total Protein 7.9 g/dL (6.3-8.3) 02/06/18 07:53 Albumin 4.2 g/dL (3.5-5.0) 02/06/18 07:53 Globulin 3.7 gm/dL (2.2-3.9) 02/06/18 07:53 Albumin/Globulin Ratio 1.1 (1.0-2.1) 02/06/18 07:53 Triglycerides 71 mg/dL (0-149) D 02/03/18 08:47 Cholesterol 136 mg/dL (0-199) 02/03/18 08:47 LDL Cholesterol Direct 90 mg/dL (0-129) 02/03/18 08:47 HDL Cholesterol 31 mg/dL (30-70) 02/03/18 08:47 Vitamin B12 467 pg/mL (239-931) 02/03/18 08:47 Folate 14.0 ng/mL 02/03/18 08:47 Blood Type A POSITIVE 02/01/18 22:52 Antibody Screen Negative 02/01/18 22:52 - Hospital Course Hospital Course: Pt was admited to hospital for eval of new gait disturbance and changes in behavior. PT was found to have an acute/subacute minor radiata stroke. Pt remained stable during hospital state and sent to rehab. Discharge Exam - Head Exam Head Exam: NORMAL INSPECTION, NORMOCEPHALIC - Eye Exam Eye Exam: Normal appearance - ENT Exam ENT Exam: Mucous Membranes Moist - Respiratory Exam Respiratory Exam: Clear to PA & Lateral - Cardiovascular Exam Cardiovascular Exam: REGULAR RHYTHM, RRR, +S1, +S2. absent: JVD Discharge Plan - Discharge Medications Prescriptions: Clopidogrel [Plavix] 75 mg PO DAILY 30 Days tab - Follow Up Plan Condition: STABLE Instructions: Transient Ischemic Attack, Stroke, Clopidogrel Additional Instructions: [place] [facility] [place]ING ORDER CONTINUE HOME MEDICATION NEW PRESCRIPTION GIVEN PLAVIX 75 MG PO DAILY STOP TAKING VASOTEC/ HYDRALAZINE AND TROPOL XL ACTIVITY TOLERATED AND FACILITY PROTOCOL CALL DR BURLESON FOR FURTHER ORDER Referrals: Shannon Burleson MD [Staff Provider] - Jaden Adams MD [Staff Provider] -
--- NOTE | 2018-02-07 17:26 | CARD ---
APPROVED REPORT Date of service: 02/01/2018 EKG Measurement Heart [id number] <Conclusion> Normal sinus rhythm Normal ECG
== END 2018-02-06 19:06 | DRG 66 ==
LOC: C.ER 21:46 → C.9E 23:15 → C.5S 02-02 00:44 → C.9E 02-02 01:01 → C.5S 02-02 01:32 → OBSVTOIN 02-03 10:14 → C.5S 02-04 03:56
PROVIDERS: ADMIT Internal Medicine; ATTEND Internal Medicine
DX: I63.81 Other cerebral infarction due to occlusion or stenosis of small artery (principal); R47.1 Dysarthria and anarthria; E78.00 Pure hypercholesterolemia, unspecified; I10 Essential (primary) hypertension; Z86.73 Personal history of transient ischemic attack (TIA), and cerebral infarction without residual deficits; Z87.891 Personal history of nicotine dependence; D64.9 Anemia, unspecified

== ENCOUNTER 2018-03-24 23:24 | Emergency (ER) | payer MEDICARE ==
[2018-03-24 23:40] VITALS: RESP 18; O2SAT 99
[2018-03-25 00:38] LABS: BASO # 0.1 K/uL (0.0-0.2); BASO % 0.6 % (0.0-2.0); EOS # 0.1 K/uL (0.0-0.7); EOS % 0.8 % (0.0-4.0); HEMOGLOBIN 10.8 g/dL (11.0-16.0); LYMPH # 1.7 K/uL (1.0-4.3); LYMPH % 17.9 % (20.0-40.0); MEAN CELL VOLUME 85.4 fL (81.0-99.0); MEAN CORPUSCULAR HGB CONC 32.8 g/dL (33.0-37.0); MONO # 0.6 K/uL (0.0-0.8); MONO % 6.8 % (0.0-10.0); NEUT % 73.9 % (50.0-75.0); RBC 3.86 Mil/uL (3.80-5.20); RED CELL DISTRIBUTION WIDTH 14.4 % (11.5-14.5); WHITE BLOOD COUNT 9.4 K/uL (4.8-10.8)
[2018-03-25 00:42] LABS: INR 1.1; PROTHROMBIN TIME 11.8 SECONDS (9.7-12.2)
--- NOTE | 2018-03-25 01:07 | C.PDOC ---
History Of Present Illness Patient is a 63 year old female who is brought in by her family to the ED for evaluation after a fall at home. Patient states that she was laughing and fell over a coffee table onto her back. She complains of bruising on her right back and right knee soreness. Patient denies head injury, LOC, neck pain, dizziness, palpitations, SOB, CP, or abdominal pain. Her medications include Aspirin and Plavix. - HPI Time Seen by Provider: 03/24/18 23:49 Chief Complaint (Nursing): Trauma History Per: Patient History/Exam Limitations: no limitations Onset/Duration Of Symptoms: Hrs Injury Occurred (Timing): Hours Ago: Location Of Injury: Right: Back (bruising), Knee (tenderness) Recent travel outside of the [place]: No Additional History Per: Patient - Fall Fall:Prior To Injury: Tripped (over table ) Past Medical History Reviewed: Historical Data, Nursing Documentation, Vital Signs Vital Signs: Last Vital Signs Temp 98.1 F 03/24/18 23:35 Pulse 104 H 03/24/18 23:35 Resp 18 03/24/18 23:35 BP Pulse Ox 99 03/24/18 23:35 - Medical History PMH: HTN Denies: Arthritis, CHF, COPD, Hypercholesterolemia, Hypothyroidism, Pneumonia, Chronic Kidney Disease, Rheumatoid Arthritis Surgical History: No Surg Hx Family History: States: Unknown Family Hx - Social History Hx Alcohol Use: No Hx Substance Use: No - Immunization History Hx Tetanus Toxoid Vaccination: No Hx Influenza Vaccination: No Hx Pneumococcal Vaccination: No Review Of Systems Constitutional: Negative for: Fever Cardiovascular: Negative for: Chest Pain, Palpitations Respiratory: Negative for: Shortness of Breath Gastrointestinal: Negative for: Nausea, Vomiting, Abdominal Pain Musculoskeletal: Positive for: Back Pain, Leg Pain, Other (knee soreness) Skin: Positive for: Bruising (right back) Neurological: Negative for: Weakness, Numbness, Headache, Dizziness Physical Exam - Physical Exam Appears: Non-toxic, No Acute Distress Skin: Normal Color, Warm, Dry Head: Atraumatic, Normacephalic Eye(s): bilateral: Normal Inspection, PERRL, EOMI Oral Mucosa: Moist Neck: Normal ROM, No Midline Cervical Tenderness, Supple Chest: Symmetrical, No Deformity Cardiovascular: Rhythm Regular Respiratory: Normal Breath Sounds, No Rales, No Rhonchi, No Wheezing Gastrointestinal/Abdominal: Soft, No Tenderness Back: Other (right thoracic T-9 nontender ecchymosis 7 cm in length ) Extremity: Normal ROM, Tenderness (right anterior knee), No Calf Tenderness, No Deformity, No Swelling Neurological/Psych: Oriented x3, Normal Speech, Normal Cognition Gait: Steady ED Course And Treatment - Laboratory Results Result Diagrams: 03/25/18 00:34 O2 Sat by Pulse Oximetry: 99 (on RA) Pulse Ox Interpretation: Normal - Radiology CXR: Interpreted by Me, Viewed By Me CXR Interpretation: Yes: No Acute Disease. No: Fracture - Other Rad Right Knee X-Ray X-Ray: Interpreted by Me, Viewed By Me Interpretation: No fracture or dislocation Progress Note: Plan: -X Ray Knee. -X Ray Ribs/Chest. -Tylenol 650mg Disposition Counseled Patient/Family Regarding: Studies Performed, Diagnosis, Need For Followup - Disposition Referrals: Shannon Kaur MD [Staff Provider] - Disposition: HOME/ ROUTINE Disposition Time: 01:05 Condition: STABLE Additional Instructions: FOLLOW UP WITH YOUR DOCTOR IN 1-2 DAYS USE TYLENOL NEEDED FOR PAIN RETURN TO EMERGENCY ROOM IF YOU HAVE WORSENING/CONCERNING SYMPTOMS Instructions: Contusion (DC), Knee Sprain (DC) Forms: [employer] ([employer]) (Guyanese) Print Language: MAORI - POA Present On Arrival: Falls Or Trauma - Clinical Impression Clinical Impression: Superficial bruising of back, Right knee sprain - Scribe Statement The provider has reviewed the documentation as recorded by the Winsome Burch All medical record entries made by the Scribjosé antonio were at my direction and personally dictated by me. I have reviewed the chart and agree that the record a ccurately reflects my personal performance of the history, physical exam, medical decision making, and the department course for this patient. I have also personally directed, reviewed, and agree with the discharge instructions and disposition.
[2018-03-25 01:33] VITALS: BP 146/78; PULSE 92; TEMP 98.4
--- NOTE | 2018-03-25 12:45 | RAD ---
PROCEDURE: Right Knee Radiographs. HISTORY: right knee/lower leg pain after fall COMPARISON: None available. FINDINGS: BONES: No acute displaced fracture. JOINTS: No dislocation. JOINT EFFUSION: No significant joint effusion. OTHER FINDINGS: None. IMPRESSION: No acute displaced fracture, dislocation, or significant joint effusion identified. If symptoms persist, or if there is continued clinical concern, x-ray follow-up in 7-10 days should be considered.
--- NOTE | 2018-03-25 13:13 | RAD ---
Date of service: 03/25/2018 PROCEDURE: Radiographs of the Chest and Right Ribs. HISTORY: right posterior/lower rib injury COMPARISON: Chest x-ray performed 10/23/17 TECHNIQUE: Frontal radiograph of the chest and multiple oblique radiographs of the right ribs were obtained. FINDINGS: Examination limited by habitus. RIGHT RIBS: No acute displaced fracture identified. LUNGS: No focal consolidation. Please note that chest x-ray has limited sensitivity for the detection of pulmonary masses. PLEURA: No significant pleural effusion. No definite pneumothorax. CARDIOVASCULAR: Heart size appears within normal limits. No pulmonary vascular congestion. Aortic atherosclerotic calcification present OTHER FINDINGS: None. IMPRESSION: Unremarkable radiographs of the chest and right ribs. No appreciable displaced right rib fracture.
== END 2018-03-25 01:34 | disposition home or self-care (01) ==
LOC: C.ER 23:24
DX: S20.221A Contusion of right back wall of thorax, initial encounter (principal); S83.91XA Sprain of unspecified site of right knee, initial encounter; W01.0XXA Fall on same level from slipping, tripping and stumbling without subsequent striking against object, initial encounter; Y92.009 Unspecified place in unspecified non-institutional (private) residence as the place of occurrence of the external cause